=== PATIENT | female | born 2000 | race Caucasian/White ===

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

== ENCOUNTER 2018-02-13 04:32 | Emergency (ER) | payer SELFPAY ==
[~2018-02-13] VITALS: Ht 160 cm; Wt 81.6 kg
[~2018-02-13 04:32] MED LIST changes: +BENZ200C51 PO; -CITA20TA7; +CITA20TA9; +DOXY100C2 PO; +NAPR-1070 PO; +NAPR-1071 PO; -NAPR500T PO; -NAPR550T PO
--- OUTSIDE RECORDS SUMMARY | 2018-02-13 04:37 | XMS REPORT ---
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 Phone ANGELIA GOMES CP Unavailable Allergies, Adverse Reactions, Alerts Substance Reaction Event Type Hydrocodone-Acetaminophen hives Drug Allergy Problems Problem Type Condition Code Onset Dates Condition Status Problem Stress headaches F45.41 Active Problem Insomnia G47.00 Active Problem Depression F32.9 Active Assessment Insomnia G47.00 Active Problem Unspecified episodic mood disorder F39 Active Assessment Unspecified episodic mood disorder F39 Active Medications Medication Code System Code Instructions Start Date End Date Status Dosage Amitriptyline HCl [facility] [address]-97 25 MG Orally Once a day at 10 pm Jun 1 tablet Celexa [facility] [address]-21 20 MG Orally take 1/2 tab X7 days, then increase to 1 tab Once a day Jul 17, 2015 1 tablet Procedures Procedure Coding System Code Date MH Office Visit, Est Pt., Level 3 CPT-4 24504 Jul 17, 2015 Vital Signs Date/Time: Jul 17, 2015 Cardiac Monitoring Heart Rate 96 bpm Weight 217.0 lbs Height 64.7 in Ht Percentile 58.35 % BMI 36.44 Index Blood Pressure Diastolic 84 mmHg Blood Pressure Systolic 125 mmHg BMIPercentile 98.42 % Wt Percentile 98.59 % Results No Known Results Summary Purpose [employer] Submission
--- OUTSIDE RECORDS SUMMARY | 2018-02-13 04:37 | XMS REPORT ---
Author Author GEO MOFFETT [facility] [employer] Address Unknown Phone Unavailable Care Team Providers Care Gyn Physician Name Role Phone GEO MOFFETT Unavailable Allergies No Known Allergies Problems Problem Type Condition Code Onset Dates Condition Status Assessment Unspecified episodic mood disorder F39 Active Problem Unspecified episodic mood disorder F39 Active Medications No Known Medications Procedures Procedure Coding System Code Date Psychotherapy, patient &/family, 45 minutes, established patient CPT-4 31793 Jun 16, 2015 Results No Known Results Summary Purpose [employer] Submission
--- OUTSIDE RECORDS SUMMARY | 2018-02-13 04:38 | XMS REPORT ---
Author LAURIE Porter Organization [employer] Address Unknown Phone Unavailable Care Team Providers Care Sheet Pile Driver Operator Name Role Phone LAURIE REINA CP Unavailable Allergies, Adverse Reactions, Alerts Substance Reaction Event Type Hydrocodone-Acetaminophen hives Drug Allergy Problems Problem Type Condition Code Onset Dates Condition Status Problem Stress headaches F45.41 Active Problem Insomnia G47.00 Active Problem Depression F32.9 Active Problem Unspecified episodic mood disorder F39 Active Assessment Skin tags, multiple acquired L91.8 Active Medications No Known Medications Procedures Procedure Coding System Code Date Office Visit, Est Pt., Level 2 CPT-4 79034 Jul 20, 2016 REMOVE SKIN TAGS ADD-ON CPT-4 12160 Jul 20, 2016 Vital Signs Date/Time: Jul 20, 2016 Cardiac Monitoring Heart Rate 68 bpm Weight 224.3 lbs Height 65 in Wt Percentile 98.76 % BMI 37.32 Index Blood Pressure Diastolic 68 mmHg Blood Pressure Systolic 132 mmHg BMIPercentile 98.32 % Results No Known Results Summary Purpose eClinicalWorks Submission
--- OUTSIDE RECORDS SUMMARY | 2018-02-13 04:38 | XMS REPORT ---
Author Author GEO MOFFETT [facility] eClinicalWorks Address Unknown Phone Unavailable Care Team Providers Care Paving Rammer Name Role Phone GEO MOFFETT Unavailable Allergies [...] patient &/family, 45 minutes, established patient CPT-4 31119 Aug 19, 2015 Results No Known Results Summary Purpose eClinicalWorks Submission
--- OUTSIDE RECORDS SUMMARY | 2018-02-13 04:38 | XMS REPORT ---
Author Author GEO MOFFETT [facility] eClinicalWorks Address Unknown Phone Unavailable Care Team Providers Care Ict Teacher Name Role Phone GEO MOFFETT Unavailable Allergies [...] patient &/family, 45 minutes, established patient CPT-4 66293 Jul 09, 2015 Results No Known Results Summary Purpose eClinicalWorks Submission
--- OUTSIDE RECORDS SUMMARY | 2018-02-13 04:39 | XMS REPORT ---
Author LAURIE Porter Organization [employer] Address Unknown Phone Unavailable Care Team Providers Care Pile Driving Setter Name Role Phone LAURIE REINA CP Unavailable Allergies No Known Allergies Problems No Known Problems Medications No Known Medications Results No Known Results Summary Purpose eClinicalWorks Submission
--- OUTSIDE RECORDS SUMMARY | 2018-02-13 04:39 | XMS REPORT ---
Author KESHAWN Whitney [facility] eClinicalWorks Address Unknown Phone Unavailable Care Team Providers Care Security Services Manager Name Role Phone KESHAWN BURCH CP Unavailable Allergies, Adverse Reactions, Alerts Substance Reaction Event Type Hydrocodone-Acetaminophen Info Not Available Drug Allergy Problems Problem Type Condition ICD-9 Code Onset Dates Condition Status Assessment control counseling V25.09 Active Assessment Ovarian cyst, right 620.2 Active Medications Medication Code System Code Instructions Start Date End Date Status Dosage Tramadol HCl [facility] [address]-27 50 MG Orally every 6 hrs 1 tablet as needed Naproxen [facility] [address]-20 500 MG Orally Twice a day 1 tablet Ortho-Cyclen (28) [facility] [address]-58 0.25-35 MG-MCG Orally Once a day Apr 1 tablet Procedures Procedure Coding System Code Date Office Visit, Est Pt., Level 3 CPT-4 46127 May 12, 2015 Vital Signs Date/Time: May 12, 2015 Temperature 98.8 F Weight 219 lbs Height 64 in Wt Percentile 98.68 % Ht Percentile 47.69 % BMI 37.59 Index Cardiac Monitoring Heart Rate 86 bpm BMIPercentile 98.68 % Results No Known Results Summary Purpose eClinicalWorks Submission
--- OUTSIDE RECORDS SUMMARY | 2018-02-13 04:39 | XMS REPORT ---
Author Author GEO MOFFETT [facility] eClinicalWorks Address Unknown Phone Unavailable Care Team Providers Care Station Baggage Porter Name Role Phone GEO MOFFETT Unavailable Allergies No Known Allergies Problems Problem Type Condition ICD-9 Code Onset Dates Condition Status Assessment Unspecified episodic mood disorder 296.90 Active Medications No Known Medications Procedures Procedure Coding System Code Date Psychotherapy, patient &/family, 45 minutes, established patient CPT-4 26284 May 07, 2015 Results No Known Results Summary Purpose eClinicalWorks Submission
--- OUTSIDE RECORDS SUMMARY | 2018-02-13 04:39 | XMS REPORT ---
Author Author LAURIE REINA Organization [facility] Address [address] [place] [address] Care Team Providers Care Flame Gouger Name Role Phone LATOSHA LAURIE Unavailable PROBLEMS Type Condition ICD9-CM Code PSF90-FB Code Onset Dates Condition Status SNOMED Code Problem Primary insomnia F51.01 Active 7501231 Problem Morbid obesity due to excess calories E66.01 Active 183784490 Problem Insomnia G47.00 Active 062918103 Problem Unspecified episodic mood disorder F39 Active 27812745 Problem Stress headaches F45.41 Active 12724278 Problem Depression F32.9 Active 49295661 ALLERGIES No Information ENCOUNTERS Encounter Location Date Diagnosis [place] [id number] [place] [address]131[address] January, Weight gain R63.5 ; Localized edema R60.0 and Syncope, unspecified syncope type R55 [place] [id number] [place] [address] 00559- 5908 Dec, Primary insomnia F51.01 and Intermittent left lower quadrant abdominal pain R10.32 [place] [id number] [place] [address] 14234- 8722 Aug, Morbid obesity due to excess calories E66.01 and Tinea corporis B35.4 [place] [id number] [place] [address] 27617- 7013 Aug, [place] [address] [address] Apr, Acute pain of right wrist M25.531 [place] [id number] [place] [address] 11275- 9266 08 Jul, 2016 Skin tags, multiple acquired L91.8 [facility] [id number] [place] [address] -[address] Jun, Acute non-recurrent frontal sinusitis J01.10 [facility] [id number] [place] [address] 62688- 0907 Feb, [facility] [id number] [place] [address] 96576- 7756 Feb, Menorrhagia with irregular cycle N92.1 and control counseling Z30.9 [facility] [id number] [place] [address] [id number] Feb, Encounter for dental examination Z01.20 [facility] [id number] [place] [address] 76700- 7553 Feb, Unspecified episodic mood disorder F39 [facility] [id number] [place] [address] 84996- 2763 Dec, Unspecified episodic mood disorder F39 [facility] [address] [id number] Dec, Dental examination Z01.20 [facility] [id number] [place] [address] 91557 -4378 Nov, Bronchitis J40 [facility] [address] [id number] Sep, Dental examination Z01.20 [facility] [id number] [place] [address] 97779 -3261 Aug, Unspecified abdominal pain R10.9 and UTI (urinary tract infection) N39.0 [facility] [id number] [place] [address] 47888- 0435 Aug, Unspecified episodic mood disorder F39 [facility] [id number] [place] [address] 01751- 8872 Aug, Insomnia G47.00 ; Depression F32.9 ; Unspecified mood [ affective] disorder F39 ; Stress headaches F45.41 and Encounter for observation for other suspected diseases and conditions ruled out Z03.89 [facility] [address] [address] Jul, Unspecified episodic mood disorder F39 and Insomnia G47.00 [facility] [address] [address] Jun, Unspecified episodic mood disorder F39 [facility] [id number] [place] [address] 77594- 5050 Jun, Depression F32.9 [facility] [id number] [place] [address] 34095- 1465 Jun, Depression F32.9 ; Stress headaches F45.41 and Insomnia G47.00 [facility] [id number] [place] [address] 52702- 8762 Jun, Unspecified episodic mood disorder F39 [facility] [id number] [place] [address] 26710- 8826 May, Unspecified episodic mood disorder 296.90 [facility] [id number] [place] [address] 00898- 6623 May, [facility] [id number] [place] [address] 62884- 1612 Apr, Ovarian cyst, right 620.2 and control counseling V25.09 [facility] [id number] [place] [address] 60489- 2606 Apr, [facility] [id number] [place] [address] 10964- 9288 Apr, Unspecified episodic mood disorder 296.90 [facility] [id number] [place] [address] 82598- 0957 Apr, [facility] [id number] [place] [address] 94527- 3441 Apr, Unspecified episodic mood disorder 296.90 ; No condition on Taberg II V71.09 and No condition on axis III V71.09 [facility] [address] [facility] [id number] [address] Apr, Left knee pain 719.46 and Tuberculin skin test encounter V74.1 [facility] [address] [facility] [id number] [place] [address] Mar, [facility] [address] [place] [address] 0606 Dec, [facility] [address] [facility] [id number] [place] [address]- 4283 Dec, [facility] [address] [facility] [id number] [place] [address]- 7284 Nov, [facility] [address] [facility] [id number] [place] [address]- 3103 Nov, [facility] [address] [place] [address]- 7000 Nov, [facility] [id number] [place] [address]- 9233 Nov, [facility] [address] [place] [address]- 1804 Nov, [facility] [address] [place] [address]- 3103 Nov, [facility] [address] [place] [address]- 7950 Oct, [facility] [address] [facility] [id number], [place] [address] Oct, [facility] [address] [facility] [id number], [place] [address]447 Oct, [facility] [address] [facility] [id number], [place] [address] Oct, [facility] [id number] [address] Jul, [facility] [place] [facility] [address] [id number] [place] [address]- 1379 Jul, [facility] [place] [facility] [address] [id number] [place] [address]- 8958 Jun, [facility] [place] [facility] [address] [id number] [place] [address]- 3678 Jun, [facility] [place] [facility] [address] [id number] [place] [address]- 8620 Jun, [facility] [place] [facility] [address] [id number] [place] [address]- 3631 Jun, [facility] [place] [facility] [address] [id number] [place] [address]- 0030 24 May, 2014 [facility] [place] [facility] [address] [id number] [place] [address]- 1735 24 May, 2014 [facility] [place] [facility] [address] [id number] [place] [address]- 0223 13 May, 2014 [facility] [place] [facility] [address] [id number] [place] [address]- 5599 12 May, 2014 [facility] [place] [facility] [address] [id number] [place] [address]- 2183 12 May, 2014 [facility] [place] [facility] [address] [id number] [place] [address]- 5664 10 May, 2014 [facility] [place] [facility] [address] [id number] [place] [address]- 5323 10 May, 2014 [facility] [place] [facility] [address] [id number] [place] [address]- 1074 18 Dec, 2013 [facility] [place] [facility] [address] [id number] [place] [address]- 5786 18 Dec, 2013 [facility] [place] [facility] [address] [id number] [place] [address]- 8848 16 Dec, 2013 [facility] [place] [facility] [address] [id number], [place] [address]- 2546 Dec, [facility] [address] [address]- 2546 Dec, [facility] [address] [address]- 2546 Dec, [facility] [address], [place] [address]- [address] January, [facility] [address], [place] [address]- 2546 Sep, [facility] [address], [place] [address] 2546 May, [facility] [address] [address] 2546 Oct, [facility] [address], [place] [address] 2546 Apr, IMMUNIZATIONS No Known Immunizations SOCIAL HISTORY Never Assessed REASON FOR VISIT triage - CBowmanRN PLAN OF CARE VITAL SIGNS MEDICATIONS Unknown Medications RESULTS No Results PROCEDURES No Known procedures INSTRUCTIONS MEDICATIONS ADMINISTERED No Known Medications MEDICAL (GENERAL) HISTORY Type Description Date Medical History Seizures due to stress. Last one was November 2014 Surgical History tonsillectomy and adenoidectomy
--- OUTSIDE RECORDS SUMMARY | 2018-02-13 04:39 | XMS REPORT ---
Author Author GEO MOFFETT [facility] eClinicalWorks Address Unknown Phone Unavailable Care Team Providers Care Hardwood Floor Refinisher Name Role Phone GEO MOFFETT Unavailable Allergies [...] patient &/family, 45 minutes, established patient CPT-4 55642 December 24, 2015 Results No Known Results Summary Purpose eClinicalWorks Submission
--- OUTSIDE RECORDS SUMMARY | 2018-02-13 04:40 | XMS REPORT ---
Author NELLY Arredondo [facility] eClinicalWorks Address Unknown Phone Unavailable Care Team Providers Care Walking Dragline Operator Name Role Phone NELLY FELIPE CP Unavailable Allergies, Adverse Reactions, Alerts Substance Reaction Event Type Hydrocodone-Acetaminophen hives Drug Allergy Problems Problem Type Condition Code Onset Dates Condition Status Problem Stress headaches F45.41 Active Problem Insomnia G47.00 Active Problem Depression F32.9 Active Assessment UTI (urinary tract infection) N39.0 Active Problem Unspecified episodic mood disorder F39 Active Assessment Unspecified abdominal pain R10.9 Active Medications Medication Code System Code Instructions Start Date End Date Status Dosage Seroquel [facility] [address]-24 50 MG Orally Once a day Aug 19, 2015 1 tablet at bedtime Celexa [facility] [address]-51 20 MG Orally Once a day Jul 17, 2015 1 tablet Bactrim DS [facility] [address]-19 800-160 MG Orally 2 times a day Aug 19, 2015 Aug 26, 2015 1 tablet Amitriptyline HCl [facility] [address]-03 25 MG Orally Once a day at 10 pm Jun 1 tablet Procedures Procedure Coding System Code Date URINALYSIS, AUTO, W/O SCOPE CPT-4 25717 Aug 19, 2015 CHYLMD TRACH, DNA, AMP PROBE CPT-4 22674 Aug 19, 2015 URINE TEST CPT-4 84144 Aug 19, 2015 URINE CULTURE/COLONY COUNT CPT-4 31603 Aug 19, 2015 N.GONORRHOEAE, DNA, AMP PROB CPT-4 85712 Aug 19, 2015 Office Visit, Est Pt., Level 3 CPT-4 40802 Aug 19, 2015 Vital Signs Date/Time: Aug 19, 2015 Cardiac Monitoring Heart Rate 88 bpm Weight 218 lbs Height 64.7 in Ht Percentile 58.23 % BMI 36.61 Index Blood Pressure Diastolic 68 mmHg Blood Pressure Systolic 108 mmHg BMIPercentile 98.43 % Wt Percentile 98.61 % Results Name Result Date Reference Range Unit Abnormality Flag TEST, URINE (IN HOUSE) ----RESULTS negative [id number] ----Lot # [id number] ----Control + [id number] ----Exp date 20150819 UA LONG DIP (IN HOUSE) ----MARVEL negative 20150819 ----GLU negative 20150819 ----SG <=1.005 20150819 ----KET negative 20150819 ----pH 5.5 20150819 ----Protein negative 20150819 ----BLO negative 20150819 ----ALDAIR 2+ 20150819 ----Color clear 20150819 ----Lot # [id number] ----Odor normal 20150819 ----Exp date 20150819 ----URO 0.2 E.U./dL 20150819 ----NIT negative 20150819 ----Clarity yellow 20150819 ----Lot # [id number] ----Exp date 20150819 Summary Purpose eClinicalWorks Submission
--- OUTSIDE RECORDS SUMMARY | 2018-02-13 04:40 | XMS REPORT ---
Author LAKSHMI Mitchell Organization eClinicalWorks Address Unknown Phone Unavailable Care Team Providers Care Vp Product Marketing Name Role Phone LAKSHMI BYRNE CP Unavailable Allergies, Adverse Reactions, Alerts Substance Reaction Event Type Hydrocodone-Acetaminophen hives Drug Allergy Problems Problem Type Condition Code Onset Dates Condition Status Problem Stress headaches F45.41 Active Problem Insomnia G47.00 Active Problem Depression F32.9 Active Problem Unspecified episodic mood disorder F39 Active Assessment Acute non-recurrent frontal sinusitis J01.10 Active Medications Medication Code System Code Instructions Start Date End Date Status Dosage ProAir HFA [facility] [address]-09 108 (90 Base) MCG/ACT Inhalation every 4 hrs prn cough or wheeze December 09, 2015 2 puffs as needed Augmentin [facility] [address]-52 875-125 MG Orally every 12 hrs Jul 02, 2016 Jul 12, 2016 1 tablet Procedures Procedure Coding System Code Date THER/PROPH/DIAG INJ, SC/IM CPT-4 48787 Jul 02, 2016 Office Visit, Est Pt., Level 3 CPT-4 45384 Jul 02, 2016 SOLUMEDROL (UP TO 125 MG) CPT-4 J2930 Jul 02, 2016 Vital Signs Date/Time: Jul 02, 2016 Cardiac Monitoring Heart Rate 90 bpm Weight 225 lbs Height 65 in Wt Percentile 98.78 % BMI 37.44 Index Blood Pressure Diastolic 68 mmHg Blood Pressure Systolic 120 mmHg BMIPercentile 98.35 % Results No Known Results Summary Purpose eClinicalWorks Submission
--- OUTSIDE RECORDS SUMMARY | 2018-02-13 04:40 | XMS REPORT ---
Author Author CHICHI JOYA Organization eClinicalWorks Address Unknown Phone Unavailable Care Team Providers Care Hydrology Teacher Name Role Phone CHICHI JOYA CP Unavailable Allergies, Adverse Reactions, Alerts Substance Reaction Event Type Hydrocodone-Acetaminophen hives Drug Allergy Problems Problem Type Condition Code Onset Dates Condition Status Assessment Stress headaches F45.41 Active Assessment Encounter for observation for other suspected diseases and conditions ruled out Z03.89 Active Problem Stress headaches F45.41 Active Problem Insomnia G47.00 Active Problem Depression F32.9 Active Assessment Depression F32.9 Active Assessment Unspecified mood [affective] disorder F39 Active Problem Unspecified episodic mood disorder F39 Active Assessment Insomnia G47.00 Active Medications Medication Code System Code Instructions Start Date End Date Status Dosage Seroquel [facility] [address]-23 50 MG Orally Once a day Aug 19, 2015 1 tablet at bedtime Amitriptyline HCl [facility] [address]-05 25 MG Orally Once a day at 10 pm Jun 1 tablet Celexa [facility] [address]-04 20 MG Orally Once a day Jul 17, 2015 1 tablet Procedures Procedure Coding System Code Date MH Office Visit, Est Pt., Level 4 CPT-4 64046 Aug 19, 2015 Vital Signs Date/Time: Aug 19, 2015 Cardiac Monitoring Heart Rate 88 bpm Weight 218 lbs Height 64.7 in Ht Percentile 58.23 % BMI 36.61 Index Blood Pressure Diastolic 68 mmHg Blood Pressure Systolic 108 mmHg BMIPercentile 98.43 % Wt Percentile 98.61 % Results No Known Results Summary Purpose eClinicalWorks Submission
--- OUTSIDE RECORDS SUMMARY | 2018-02-13 04:40 | XMS REPORT ---
Author DELIA Lopez [facility] eClinicalWorks Address Unknown Phone Unavailable Care Team Providers Care Social Work Specialist Name Role Phone DELIA JO CP Unavailable Allergies, Adverse Reactions, Alerts Substance Reaction Event Type Hydrocodone-Acetaminophen hives Drug Allergy Problems Problem Type Condition Code Onset Dates Condition Status Problem Stress headaches F45.41 Active Problem Insomnia G47.00 Active Problem Depression F32.9 Active Assessment Stress headaches F45.41 Active Assessment Insomnia G47.00 Active Problem Unspecified episodic mood disorder F39 Active Assessment Depression F32.9 Active Medications Medication Code System Code Instructions Start Date End Date Status Dosage Amitriptyline HCl [facility] [address]-25 25 MG Orally Once a day at 10 pm Jun 1 tablet Procedures Procedure Coding System Code Date Office Visit, Est Pt., Level 4 CPT-4 69804 Jul 08, 2015 Vital Signs Date/Time: Jul 08, 2015 Temperature 97.8 F BMIPercentile 98.41 % Weight 212 lbs Height 64 in BMI 36.39 Index Blood Pressure Diastolic 78 mmHg Blood Pressure Systolic 112 mmHg Cardiac Monitoring Heart Rate 90 bpm Wt Percentile 98.39 % Ht Percentile 47.44 % Results No Known Results Summary Purpose eClinicalWorks Submission
--- OUTSIDE RECORDS SUMMARY | 2018-02-13 04:40 | XMS REPORT ---
Author Author GLADYS KILLIAN [facility] eClinicalWorks Address Unknown Phone Unavailable Care Team Providers Care Firmware Manager Name Role Phone GLADYS KILLIAN CP Unavailable Allergies No Known Allergies Problems Problem Type Condition Code Onset Dates Condition Status Problem Stress headaches F45.41 Active Problem Insomnia G47.00 Active Problem Depression F32.9 Active Problem Unspecified episodic mood disorder F39 Active Assessment Dental examination Z01.20 Active Medications No Known Medications Procedures Procedure Coding System Code Date Dental no charge CPT-4 D0099 December 16, 2015 Results No Known Results Summary Purpose eClinicalWorks Submission
--- OUTSIDE RECORDS SUMMARY | 2018-02-13 04:40 | XMS REPORT ---
Author Author DELIA JO Organization [employer] Address Unknown Phone Unavailable Care Team Providers Care Proof Reader Name Role Phone DELIA JO Unavailable Allergies No Known Allergies Problems Problem Type Condition Code Onset Dates Condition Status Problem Stress headaches F45.41 Active Problem Insomnia G47.00 Active Problem Depression F32.9 Active Problem Unspecified episodic mood disorder F39 Active Assessment Depression F32.9 Active Medications No Known Medications Procedures Procedure Coding System Code Date ASSAY OF INSULIN CPT-4 02490 Jul 09, 2015 COMPLETE CBC W/AUTO DIFF WBC CPT-4 05382 Jul 09, 2015 ASSAY THYROID STIM HORMONE CPT-4 92519 Jul 09, 2015 COMPREHEN METABOLIC PANEL CPT-4 40245 Jul 09, 2015 LIPID PANEL CPT-4 70776 Jul 09, 2015 VENIPUNCT, ROUTINE* CPT-4 37021 Jul 09, 2015 Results Name Result Date Reference Range Unit Abnormality Flag ROUTINE VENIPUNCTURE Summary Purpose eClinicalWorks Submission
--- OUTSIDE RECORDS SUMMARY | 2018-02-13 04:41 | XMS REPORT ---
Author KESHAWN Whitney [facility] eClinicalWorks Address Unknown Phone Unavailable Care Team Providers Care Adzing And Boring Machine Operator Name Role Phone KESHAWN BURCH CP Unavailable Allergies No Known Allergies Problems No Known Problems Medications No Known Medications Results No Known Results Summary Purpose eClinicalWorks Submission
--- OUTSIDE RECORDS SUMMARY | 2018-02-13 04:41 | XMS REPORT ---
Author Author AIMEE ADDISON Organization [facility] Address [address] [place] [address] Care Team Providers Care Interactive Digital Media Specialist Name Role Phone AIMEE ADDISON Unavailable PROBLEMS Type Condition ICD9-CM Code ZBB09-XG Code Onset Dates Condition Status SNOMED Code Problem Primary insomnia F51.01 Active 4586905 Problem Morbid obesity due to excess calories E66.01 Active 566035508 Problem Insomnia G47.00 Active 339710461 Problem Unspecified episodic mood disorder F39 Active 24900992 Problem Stress headaches F45.41 Active 89862210 Problem Depression F32.9 Active 11343441 ALLERGIES Substance Reaction Event Type Date Status Hydrocodone-Acetaminophen hives Drug Allergy Apr, Active ENCOUNTERS Encounter Location Date Diagnosis [facility] [address] [address] Dec, Primary insomnia F51.01 and Intermittent left lower quadrant abdominal pain R10.32 [facility] [address] [place] [address] Aug, Morbid obesity due to excess calories E66.01 and Tinea corporis B35.4 [place] [id number] [place] [address] Aug, [facility] [address] [place] [address] Apr, Acute pain of right wrist M25.531 [facility] [address] [place] [address] 01857- [address] Jul, Skin tags, multiple acquired L91.8 [facility] [address] [place] [id number] [place] [address] Jun, Acute non-recurrent frontal sinusitis J01.10 [facility] [address] [place] [address] [id number]- [address] 28 Feb, 2016 [facility] [address] [address] Feb, Menorrhagia with irregular cycle N92.1 and control counseling Z30.9 [facility] [address] [id number] 15 Feb, 2016 Encounter for dental examination Z01.20 [facility] [address] [id number] [place] [address]15- [address] Feb, Unspecified episodic mood disorder F39 [place] [address] [address] Dec, Unspecified episodic mood disorder F39 [facility] [address] [id number] Dec, Dental examination Z01.20 [facility] [id number] [place] [address] -[address]228 Nov, Bronchitis J40 [facility] [address] [id number] Sep, Dental examination Z01.20 [facility] [id number] [place] [address] Aug, Unspecified abdominal pain R10.9 and UTI (urinary tract infection) N39.0 [place] [address] [place] [address] 26884- 4[address] Aug, Unspecified episodic mood disorder F39 [facility] [address] [id number] [place] [address] 72683- 7[address] Aug, Insomnia G47.00 ; Depression F32.9 ; Unspecified mood [ affective] disorder F39 ; Stress headaches F45.41 and Encounter for observation for other suspected diseases and conditions ruled out Z03.89 [place] [address] [address] Jul, Unspecified episodic mood disorder F39 and Insomnia G47.00 [facility] [id number] [place] [address] 81287- 0593 Jun, Unspecified episodic mood disorder F39 [facility] [id number] [place] [address] 26146- 6776 Jun, Depression F32.9 [facility] [id number] [place] [address] 63414- 3[address] Jun, Depression F32.9 ; Stress headaches F45.41 and Insomnia G47.00 [facility] [address] [place] [id number] [place] [address] 07116- 0647 Jun, Unspecified episodic mood disorder F39 [facility] [id number] [place] [address] 26067- 1626 May, Unspecified episodic mood disorder 296.90 [facility] [id number] [place] [address] 77754- 2034 May, [facility] [id number] [place] [address] 02156- 9787 Apr, Ovarian cyst, right 620.2 and control counseling V25.09 [facility] [address] [place] [id number] [place] [address] 56737- 8477 Apr, [facility] [id number] [place] [address] 64046- 9860 Apr, Unspecified episodic mood disorder 296.90 [facility] [id number] [place] [address] 31065- 4543 Apr, [facility] [address] [address] [id number] [place] [address] 56140- 8267 Apr, Unspecified episodic mood disorder 296.90 ; No condition on [place] II V71.09 and No condition on axis III V71.09 [facility] [id number] [place] [address] 9[address]69- [address] 04 Aug, 2015 Left knee pain 719.46 and Tuberculin skin test encounter V74.1 [facility] [address] [facility] [id number] [place] [address] 30 Mar, 2015 [facility] [address] [facility] [id number] [address] Dec, [facility] [address] [facility] [id number] [place] [address] Dec, [facility] [address] [id number], [place] [address] Nov, [facility] [address] [facility] [id number] [place] [address] Nov, [facility] [address] [facility] [id number][place] [address] Nov, [facility] [address] [address] Nov, [facility] [address] [facility] [id number], [place] [address] Nov, [facility] [address] [address] Nov, [facility] [address] [id number] [address] Oct, [facility] [address] [facility] [id number][place] [address] Oct, [facility] [address] [facility] [id number], [place] [address] Oct, [facility] [address] [facility] [id number][place] [address] Oct, [facility] [address] [facility] [id number] [address] Jul, [facility] [address] [address] Jul, [facility] [place] [facility] [address] [id number] [place] [address]- [address]39 24 Jun, 2014 [facility] [place] [facility] [address] [id number] [place] [address]- 0086 24 Jun, 2014 [facility] [place] [facility] [address] [id number] [place] [address]- 7561 10 Jun, 2014 [facility] [place] [facility] [address] [id number] [place] [address]- 2779 10 Jun, 2014 [facility] [place] [facility] [address] [id number] [place] [address]- 2608 24 May, 2014 [facility] [place] [facility] [address] [id number] [place] [address]- 9173 24 May, 2014 [facility] [place] [facility] [address] [id number] [place] [address]- 7930 13 May, 2014 [facility] [place] [facility] [address] [id number] [place] [address]- [address]887 12 May, 2014 [facility] [place] [facility] [address] [id number] [place] [address]- 7936 12 May, 2014 [facility] [place] [facility] [address] [id number] [place] [address]- 3575 10 May, 2014 [facility] [place] [facility] [address] [id number] [place] [address]- 1054 10 May, 2014 [facility] [place] [facility] [address] [id number] [place] [address]- 5447 18 Dec, 2013 [facility] [place] [facility] [address] [id number] [place] [address]- 6[address] 18 Dec, 2013 [facility] [place] [facility] [address] [id number] [place] [address]- 5660 16 Dec, 2013 [facility] [place] [facility] [address] [id number] [place] [address]- 62[address] 16 Dec, 2013 [facility] [place] [facility] [address] [id number] [place] [address]- [address] 14 Dec, 2013 [facility] [address] [facility] [id number] [place] [address]- [address] 14 Dec, 2013 [facility] [address] [facility] [id number], [place] [address]- [address] January, [facility] [address] [facility] [id number], [place] [address]- [address] Sep, [facility] [address] [facility] [id number][place] [address]- 25[address] May, [facility] [address] [facility] [id number], [place] [address]- [address] Oct, [facility] [address] [facility] [id number], [place] [address]- [address] Apr, IMMUNIZATIONS No Known Immunizations SOCIAL HISTORY Never Assessed REASON FOR VISIT wrist pain - Right wrist pain states she has a ganglion cyst that has been there for about 4 years that was to be removed but she chose not to have it removed. States that it is now causing numbness into her fingers. - Ny NIELSON PLAN OF CARE Activity Details Follow Up prn Reason: VITAL SIGNS Height 65 in 2017-05-10 Weight 254.0 lbs 2017-05-10 Temperature 98.2 degrees Fahrenheit 2017-05-10 Heart Rate 76 bpm 2017-05-10 Respiratory Rate 18 2017-05-10 BMI 42.26 kg/m2 2017-05-10 Blood pressure systolic 129 mmHg 2017-05-10 Blood pressure diastolic 83 mmHg 2017-05-10 MEDICATIONS Medication Instructions Dosage Frequency Start Date End Date Duration Status Ibuprofen 800 MG Orally Three times a day 1 tablet with food or milk 8h Apr, May, 14 days Active Tylenol 325 MG Orally every 6 hrs 2 tablets as needed 6h Active RESULTS No Results PROCEDURES No Known procedures INSTRUCTIONS MEDICATIONS ADMINISTERED No Known Medications MEDICAL (GENERAL) HISTORY Type Description Date Medical History Seizures due to stress. Last one was November 2014 Surgical History tonsillectomy and adenoidectomy
--- OUTSIDE RECORDS SUMMARY | 2018-02-13 04:41 | XMS REPORT ---
Author Author ANGELIA GOMES Organization [employer] Address Unknown Phone Unavailable Care Team Providers Care Hide Measuring Machine Operator Name Role Phone ANGELIA GOMES CP Unavailable Allergies, Adverse Reactions, Alerts Substance Reaction Event Type Hydrocodone-Acetaminophen Info Not Available Drug Allergy Problems Problem Type Condition ICD-9 Code Onset Dates Condition Status Assessment Unspecified episodic mood disorder 296.90 Active Medications Medication Code System Code Instructions Start Date End Date Status Dosage Prozac [facility] [address]-78 20 MG Orally Once a day May 16, 2015 1 capsule in the morning Tramadol HCl [facility] [address]-96 50 MG Orally every 6 hrs 1 tablet as needed Ortho-Cyclen (28) [facility] [address]-66 0.25-35 MG-MCG Orally Once a day Apr 1 tablet Naproxen [facility] [address]-32 500 MG Orally Twice a day 1 tablet Procedures Procedure Coding System Code Date Office Visit, Est Pt., Level 5 CPT-4 98242 May 16, 2015 Vital Signs Date/Time: May 16, 2015 Temperature 98.6 F BMIPercentile 98.51 % Weight 218.5 lbs Height 64.7 in BMI 36.69 Index Blood Pressure Diastolic 80 mmHg Blood Pressure Systolic 122 mmHg Cardiac Monitoring Heart Rate 104 bpm Wt Percentile 98.66 % Ht Percentile 58.59 % Results No Known Results Summary Purpose [employer] Submission
--- OUTSIDE RECORDS SUMMARY | 2018-02-13 04:41 | XMS REPORT ---
Author Author MAURILIO PRETTY Organization [employer] Address Unknown Phone Unavailable Care Team Providers Care Hall Monitor Name Role Phone MAURILIO PRETTY CP Unavailable Allergies, Adverse Reactions, Alerts Substance Reaction Event Type Hydrocodone-Acetaminophen hives Drug Allergy Problems Problem Type Condition Code Onset Dates Condition Status Problem Stress headaches F45.41 Active Problem Insomnia G47.00 Active Problem Depression F32.9 Active Problem Unspecified episodic mood disorder F39 Active Assessment Dental examination Z01.20 Active Medications No Known Medications Procedures Procedure Coding System Code Date APPLICATION DESENZT MEDICAMENT CPT-4 D9910 Sep 30, 2015 INTRAORL-PERIAPICAL 1 FILM 33624 CPT-4 D0220 Sep 30, 2015 LTD ORAL EVALUATION - PROBLEM FOCUS CPT-4 D0140 Sep 30, 2015 BITEWING - SINGLE FILM CPT-4 D0270 Sep 30, 2015 Vital Signs Date/Time: Sep 30, 2015 Blood Pressure Diastolic 84 mmHg Blood Pressure Systolic 123 mmHg Results No Known Results Summary Purpose [employer] Submission
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
[2018-02-13] MEDS ORDERED: NS IV 1000 ML 1,000 ML IV ONE (04:44)
[2018-02-13 04:58] LABS: BASOPHILS % (AUTO) 0 % (0-10); EOSINOPHILS % (AUTO) 0 % (0-10); HEMATOCRIT 36 % (35-52); HEMOGLOBIN 13.6 G/DL (11.5-16.0); LYMPHOCYTES # (AUTO) 2.2 X 10^3 (1.0-4.0); LYMPHOCYTES % (AUTO) 15 % (12-44); MEAN CORPUSCULAR HEMOGLOBIN 29 PG (25-34); MEAN CORPUSCULAR HGB CONC 38 G/DL (32-36); MEAN CORPUSCULAR VOLUME 77 FL (80-99); MEAN PLATELET VOLUME 11.3 FL (7.4-10.4); MONOCYTES # (AUTO) 1.5 X 10^3 (0.0-1.0); MONOCYTES % (AUTO) 10 % (0-12); NEUTROPHILS # (AUTO) 10.8 X 10^3 (1.8-7.8); NEUTROPHILS % (AUTO) 74 % (42-75); PLATELET COUNT 430 10^3/uL (130-400); RED BLOOD COUNT 4.73 10^6/uL (4.35-5.85); RED CELL DISTRIBUTION WIDTH 12.5 % (10.0-14.5); WHITE BLOOD COUNT 14.5 10^3/uL (4.3-11.0)
[2018-02-13] MEDS ORDERED: ANTACID SUSP 30 ML UDC (MYLANTA) ONE (04:58)
[2018-02-13] MEDS ORDERED: ANTACID SUSP 30 ML UDC (MYLANTA) PO ONE (05:00)
[2018-02-13] MEDS ORDERED: LIDOCAINE 2% VISCOUS 15 ML UDC PO ONE (05:00)
--- NOTE | 2018-02-13 05:02 | ED General ---
General Chief Complaint: Abdominal/GI Problems Stated Complaint: AB PAIN Nursing Triage Note: pt brought in by ems with complaint of abd pain and soa. states she took meth x3 days. Source of Information: Patient Exam Limitations: No Limitations History of Present Illness Date Seen by Provider: Feb 13, 2018 Time Seen by Provider: 04:33 Initial Comments Here with report of abdominal pain and shortness of breath. States this is been going on for 3 days since she injected methamphetamine. Reports that she' s not been able to eat or drink today because she's been vomiting. Denies taking any other substances or drinking alcohol. Does not report vomiting or blood in her stool. She was clean from methamphetamine for 9 months but 2 weeks ago restarted. She reports that it was her mother who made her come air tonight but she admits that she was not feeling well. Patient arrives by EMS. Timing/Duration: 2-3 Days Severity: Moderate Associated Systoms: No Chest Pain, No Cough, No Fever/Chills; Nausea/Vomiting, Shortness of Air; No Weakness Allergies and Home Medications Allergies Coded Allergies: codeine (Verified Allergy, Mild, 12/23/13) guaifenesin (Verified Allergy, Mild, 12/23/13) hydrocodone (Unverified Allergy, Unknown, 05/15/14) Patient Home Medication List Home Medication List Reviewed: Yes Review of Systems Constitutional: see HPI; No chills, No fever EENTM: no symptoms reported Respiratory: short of breath; No wheezing Cardiovascular: no symptoms reported; No chest pain, No edema Gastrointestinal: abdominal pain (epigastric); No diarrhea; nausea, vomiting Genitourinary: no symptoms reported Musculoskeletal: no symptoms reported All Other Systems Reviewed Negative Unless Noted: Yes Past Bfcwlqj-Uglqut-Ubfqct Hx Past Med/Social Hx: Reviewed Nursing Past Med/Soc Hx Patient Social History Alcohol Use: Denies Use Recreational Drug Use: Yes Drug of Choice: meth Smoking Status: Never a Smoker 2nd Hand Smoke Exposure: Yes Recent Foreign Travel: No Contact w/Someone Who Travel: No Recent Infectious Disease Expo: No Recent Hopitalizations: No Ebola Symptoms: Denies Symptoms Listed Immunizations Up To Date Tetanus Booster (TDap): Less than 5yrs PED Vaccines UTD: Yes Seasonal Allergies Seasonal Allergies: No Past Medical History Surgeries: Yes Adenoidectomy, Tonsillectomy Respiratory: Yes Asthma Cardiac: No Neurological: Yes ((stress induced seizures) PER PT) Headaches /Migraines, Seizure Disorder Reproductive Disorders: No Female Reproductive Disorders: Menstrual Problems, Ovarian Cyst Sexually Transmitted Disease: No Gastrointestinal: No Musculoskeletal: No Endocrine: No Cancer: No Psychosocial: Yes Sleep Difficulties, Anxiety, Depression Integumentary: No Blood Disorders: No Family Medical History Reviewed Nursing Family Hx No Pertinent Family Hx, Heart Disease, Cancer, Stroke Physical Exam Vital Signs Vital Signs - First Documented 02/13/18 04:33 Temp 97.4 Pulse 121 Resp 25 B/P (MAP) 135/83 Pulse Ox 100 O2 Delivery Room Air Capillary Refill : General Appearance: No Apparent Distress, WD/WN HEENT: PERRL/EOMI, Pharynx Normal Neck: Non Tender, Supple Respiratory: Lungs Clear, Normal Breath Sounds, No Accessory Muscle Use, No Respiratory Distress Cardiovascular: No Edema, No Murmur, Tachycardia Gastrointestinal: Soft; No Guarding, No Rebound; Tenderness Back: Normal Inspection, No CVA Tenderness, No Vertebral Tenderness Extremity: Normal Range of Motion, Non Tender Neurologic/Psychiatric: Alert, Oriented x3 Skin: Normal Color, Warm/Dry Progress/Results/Core Measures Suspected Sepsis SIRS Temperature:97.4 Pulse: Respiratory Rate: Laboratory Tests 02/13/18 04:44: White Blood Count 14.5H Blood Pressure / Mean: Laboratory Tests 02/13/18 04:44: Creatinine 0.84, Platelet Count 430H, Total Bilirubin 1.7H Results/Orders Lab Results Laboratory Tests Test 02/13/18 04:44 Range/Units White Blood Count 14.5 H 4.3-11.0 10^3/uL Red Blood Count 4.73 4.35-5.85 10^6/uL Hemoglobin 13.6 11.5-16.0 G/DL Hematocrit 36 35-52 % Mean Corpuscular Volume 77 L 80-99 FL Mean Corpuscular Hemoglobin 29 25-34 PG Mean Corpuscular Hemoglobin Concent 38 H 32-36 G/DL Red Cell Distribution Width 12.5 10.0-14.5 % Platelet Count 430 H 130-400 10^3/uL Mean Platelet Volume 11.3 H 7.4-10.4 FL Neutrophils (%) (Auto) 74 42-75 % Lymphocytes (%) (Auto) 15 12-44 % Monocytes (%) (Auto) 10 0-12 % Eosinophils (%) (Auto) 0 0-10 % Basophils (%) (Auto) 0 0-10 % Neutrophils # (Auto) 10.8 H 1.8-7.8 X 10^3 Lymphocytes # (Auto) 2.2 1.0-4.0 X 10^3 Monocytes # (Auto) 1.5 H 0.0-1.0 X 10^3 Eosinophils # (Auto) 0.0 0.0-0.3 10^3/uL Basophils # (Auto) 0.0 0.0-0.1 10^3/uL Urine Color YELLOW Urine Clarity CLEAR Urine pH 6 5-9 Urine Specific [place] 1.020 1.016-1.022 Urine Protein 2+ H NEGATIVE Urine Glucose (UA) NEGATIVE NEGATIVE Urine Ketones 4+ H NEGATIVE Urine Nitrite NEGATIVE NEGATIVE Urine Bilirubin NEGATIVE NEGATIVE Urine Urobilinogen 4 H NORMAL MG/DL Urine Leukocyte Esterase 2+ H NEGATIVE Urine RBC (Auto) NEGATIVE NEGATIVE Urine RBC NONE /HPF Urine WBC 0-2 /HPF Urine Squamous Epithelial Cells 5-10 /HPF Urine Crystals NONE /LPF Urine Bacteria FEW H /HPF Urine Casts NONE /LPF Urine Mucus LARGE H /LPF Urine Culture Indicated YES Sodium Level 141 135-145 MMOL/L Potassium Level 3.4 L 3.6-5.0 MMOL/L Chloride Level 107 98-107 MMOL/L Carbon Dioxide Level 15 L 21-32 MMOL/L Anion Gap 19 H 5-14 MMOL/L Blood Urea Nitrogen 14 7-18 MG/DL Creatinine 0.84 0.60-1.30 MG/DL Estimat Glomerular Filtration Rate > 60 BUN/Creatinine Ratio 17 Glucose Level 115 H 70-105 MG/DL Calcium Level 10.2 H 8.5-10.1 MG/DL Total Bilirubin 1.7 H 0.1-1.0 MG/DL Aspartate Amino Transf (AST/SGOT) 33 5-34 U/L Alanine Aminotransferase (ALT/SGPT) 34 0-55 U/L Alkaline Phosphatase 29 L 40-136 U/L Total Protein 8.8 H 6.4-8.2 GM/DL Albumin 4.8 H 3.2-4.5 GM/DL Salicylates Level < 5.0 L 5.0-20.0 MG/DL Urine Opiates Screen NEGATIVE NEGATIVE Urine Oxycodone Screen NEGATIVE NEGATIVE Urine Methadone Screen NEGATIVE NEGATIVE Urine Propoxyphene Screen NEGATIVE NEGATIVE Acetaminophen Level < 10 L 10-30 UG/ML Urine Barbiturates Screen NEGATIVE NEGATIVE Ur Tricyclic Antidepressants Screen NEGATIVE NEGATIVE Urine Phencyclidine Screen NEGATIVE NEGATIVE Urine Amphetamines Screen POSITIVE H NEGATIVE Urine Methamphetamines Screen POSITIVE H NEGATIVE Urine Benzodiazepines Screen NEGATIVE NEGATIVE Urine Cocaine Screen NEGATIVE NEGATIVE Urine Cannabinoids Screen NEGATIVE NEGATIVE Serum Alcohol < 10 <10 MG/DL My Orders Orders - CESAR SHEARER MD Saline Lock/Iv-Start (02/13/18 04:44) Ns Iv 1000 Ml (Sodium Chloride 0.9%) (02/13/18 04:44) Acetaminophen (02/13/18 04:44) Alcohol (02/13/18 04:44) Cbc With Automated Diff (02/13/18 04:44) Comprehensive Metabolic Panel (02/13/18 04:44) Drug Screen Stat (Urine) (02/13/18 04:44) Salicylate (02/13/18 04:44) Ua Culture If Indicated (02/13/18 04:44) Lidocaine 2% Viscous 15 Ml (Xylocaine Vi (02/13/18 05:00) Antacid Suspension (Mylanta Suspension (02/13/18 05:00) Antacid Suspension (Mylanta Suspension (02/13/18 04:58) Saline Lock/Iv-Start (02/13/18 05:27) Lactated Ringers (Lr 1000 Ml Iv Solution (02/13/18 05:27) Ketorolac Injection (Toradol Injection) (02/13/18 05:27) Urine Culture (02/13/18 04:44) Medications Given in ED Current Medications Medications Dose Ordered Sig/Dashawn Route Start Time Stop Time Status Last Admin Dose Admin Al Hydrox/Mg Hydrox/Simethicone 30 ml ONCE ONCE PO 02/13/18 05:00 02/13/18 05:01 DC 02/13/18 04:59 30 ML Lactated Ringer's 1,000 ml @ 0 mls/hr Q0M ONCE IV 02/13/18 05:27 02/13/18 05:28 DC 02/13/18 05:36 1,000 MLS/HR Lidocaine HCl 15 ml ONCE ONCE PO 02/13/18 05:00 02/13/18 05:01 DC 02/13/18 05:00 15 ML Sodium Chloride 1,000 ml @ 0 mls/hr Q0M ONCE IV 02/13/18 04:44 02/13/18 04:46 DC 02/13/18 04:53 1,000 MLS/HR Vital Signs/I&O 02/13/18 04:33 Temp 97.4 Pulse 121 Resp 25 B/P (MAP) 135/83 Pulse Ox 100 O2 Delivery Room Air Capillary Refill : Progress Note : Progress Note Seen and evaluated. IV, labs, UA and UDS ordered. Normal saline 1 L bolus. GI cocktail ordered. Monitor patient. Did talk with her at length about methamphetamine abuse and working to get clean as well as community resources including [facility] and local [place]-based initiatives. Patient was appreciative of the information and conversation. 0600: Repeat fluids bolus with LR 1 L. Toradol 30 mg IV given. She is doing better. UTI suspected. Keflex 500 mg by mouth given. Discharged home with return precautions. Patient verbalize understanding instructions and agreement with plan. Departure Impression Primary Impression: Urinary tract infection Qualified Codes: N30.00 - Acute cystitis without hematuria Additional Impression: Methamphetamine abuse Disposition: HOME, SELF-CARE Condition: Improved Departure-Patient Inst. Decision time for Depature: 06:15 Referrals: [facility] (PCP/Family) Primary Care Physician Patient Instructions: Acute Abdomen (Belly Pain), Adult (DC), Methamphetamine, Urinary Tract Infection, Adult (DC) Add. Discharge Instructions: All discharge instructions reviewed with patient and/or family. Voiced understanding. Stop using methamphetamine. You should follow-up with the programs that were given to you including [facility] and restore and more. Take medication as directed. You may take Tylenol 1000 mg every 8 hours as needed for pain. You may take [id number] Pepcid or the generic famotidine 20 mg daily as needed for stomach upset. Drink plenty of fluids. Eat a bland diet for the next few days and then advance as tolerated. Follow-up with your doctor within one week for recheck and further evaluation as needed. Return for worse pain, fever, vomiting, weakness, breathing problems or other concerns as needed. Scripts Cephalexin (Cephalexin) 500 Mg Tablet 500 MG PO BID, #10 TAB 0 Refills Prov: CESAR SHEARER MD 02/13/18 CESAR SHEARER MD Feb 13, 2018 05:02
[2018-02-13 05:09] LABS: AMPHETAMINE SCREEN, URINE POSITIVE (NEGATIVE); BARBITURATE SCREEN URINE NEGATIVE (NEGATIVE); BENZODIAZEPINES SCREEN URINE NEGATIVE (NEGATIVE); CANNABINOID SCREEN, URINE NEGATIVE (NEGATIVE); COCAINE SCREEN URINE NEGATIVE (NEGATIVE); METHADONE STAT NEGATIVE (NEGATIVE); METHAMPHETAMINE SCREEN URINE S POSITIVE (NEGATIVE); OPIATE SCREEN URINE NEGATIVE (NEGATIVE); OXYCODONE STAT NEGATIVE (NEGATIVE); PROPOXYPHENE STAT NEGATIVE (NEGATIVE); TRICYCLIC ANTIDEPRESSANTS SCRE NEGATIVE (NEGATIVE)
[2018-02-13 05:18] LABS: ALANINE AMINOTRANSFERASE 34 U/L (0-55); ALBUMIN 4.8 GM/DL (3.2-4.5); ALKALINE PHOSPHATASE 29 U/L (40-136); BILIRUBIN,TOTAL 1.7 MG/DL (0.1-1.0); BUN/CREATININE RATIO 17; CALCIUM 10.2 MG/DL (8.5-10.1); CARBON DIOXIDE 15 MMOL/L (21-32); CHLORIDE 107 MMOL/L (98-107); CREATININE SERUM 0.84 MG/DL (0.60-1.30); GFR ESTIMATED > 60; GLUCOSE 115 MG/DL (70-105); POTASSIUM 3.4 MMOL/L (3.6-5.0); SALICYLATE < 5.0 MG/DL (5.0-20.0); SODIUM 141 MMOL/L (135-145); TOTAL PROTEIN 8.8 GM/DL (6.4-8.2)
[2018-02-13 05:25] LABS: ACETAMINOPHEN < 10 UG/ML (10-30)
[2018-02-13] MEDS ORDERED: LACTATED RINGERS 1,000 ML IV ONE (05:27)
[2018-02-13] MEDS ORDERED: KETOROLAC 30 MG/ML VIAL IVP STA (05:27)
[2018-02-13 05:32] LABS: BILIRUBIN,URINE NEGATIVE (NEGATIVE); CLARITY,URINE CLEAR; COLOR,URINE YELLOW; GLUCOSE, URINE (UA) NEGATIVE (NEGATIVE); KETONES,URINE 4+ (NEGATIVE); LEUKOCYTE ESTERASE ,URINE 2+ (NEGATIVE); NITRITE,URINE NEGATIVE (NEGATIVE); PH,URINE 6 (5-9); PROTEIN,URINE 2+ (NEGATIVE); UROBILINOGEN,URINE 4 MG/DL (NORMAL)
[2018-02-13 05:40] LABS: BACTERIA,URINE FEW /HPF; WBC,URINE 0-2 /HPF
[2018-02-13] MEDS ORDERED: CEPH500T PO (06:18)
[2018-02-13] MEDS ORDERED: CEPHALEXIN 250 MG (KEFLEX) CAP PO STA (06:19)
== END 2018-02-13 06:54 | disposition home or self-care (01) ==
LOC: EDUNIT# 04:32 → ER 04:33
DX: N39.0 Urinary tract infection, site not specified (principal); F15.10 Other stimulant abuse, uncomplicated; F41.9 Anxiety disorder, unspecified; F32.9 Major depressive disorder, single episode, unspecified; G43.909 Migraine, unspecified, not intractable, without status migrainosus; G40.909 Epilepsy, unspecified, not intractable, without status epilepticus; Z77.22 Contact with and (suspected) exposure to environmental tobacco smoke (acute) (chronic); Z90.89 Acquired absence of other organs; Z87.42 Personal history of other diseases of the female genital tract; Z88.5 Allergy status to narcotic agent; Z88.1 Allergy status to other antibiotic agents; Z88.6 Allergy status to analgesic agent
CPT/HCPCS: 36415; 80053; 80306; 80320; 80329; 81000; 85025; 87088; 96360; 96361

== ENCOUNTER 2018-05-30 16:06 | Emergency (ER) | payer SELFPAY ==
[~2018-05-30] VITALS: Ht 160 cm; Wt 99.8 kg
[~2018-05-30 16:06] MED LIST changes: -BENZ-13 PO; +BENZ100C18 PO; +CEPH500T PO
--- NOTE | 2018-05-30 16:43 | ED Abdominal Pain ---
General Chief Complaint: Abdominal/GI Problems Stated Complaint: VOMTING,UNABLE TO EAT/DRINK Nursing Triage Note: PT HAS BEEN VOMITING FOR THE LAST TWO DAYS, UNABLE TO HOLD DOWN FLUIDS. PT VERBALIZED RUQ PAIN THAT RADIATES TO THE LLQ UPON PALPATION Sepsis Screen: No Definite Risk Source of Information: Patient Exam Limitations: No Limitations History of Present Illness Date Seen by Provider: May 30, 2018 Time Seen by Provider: 16:38 Initial Comments Patient is a 18-year-old female who presents to the emergency room with complaints of nausea and vomiting for the past week. She reports generalized abdominal cramping and right upper quadrant and left lower quadrant pain on palpation. She sees Andrés Lawson at [facility] but has not been in to see him. She denies fever, diarrhea, urinary tract infection symptoms, and constipation Severity/Quality: Cramping Location: Generalized Abdomen Radiation: No Radiation Associated Symptoms: Nausea/Vomiting Allergies and Home Medications Allergies Coded Allergies: codeine (Verified Allergy, Mild, 12/23/13) guaifenesin (Verified Allergy, Mild, 12/23/13) hydrocodone (Unverified Allergy, Unknown, 05/15/14) Home Medications Cephalexin 500 Mg Tablet, 500 MG PO BID Prescribed by: CESAR SHEARER on 02/13/18 0618 Ondansetron 4 Mg Tab.rapdis, 4 MG SL Q4H PRN for NAUSEA/VOMITING-1ST LINE Prescribed by: EM HOLLINS on 05/30/181853 Sulfamethoxazole/Trimethoprim 1 Each Tablet, 1 EACH PO BID Prescribed by: EM HOLLINS on 05/30/181853 Patient Home Medication List Home Medication List Reviewed: Yes Review of Systems Review of Systems Constitutional: see HPI; No chills, No fever Gastrointestinal: See HPI, Nausea, Vomiting All Other Systems Reviewed Negative Unless Noted: Yes Past Crhoqhn-Uakaoz-Gsgfua Hx Past Med/Social Hx: Reviewed Nursing Past Med/Soc Hx Patient Social History Drug of Choice: meth 2nd Hand Smoke Exposure: Yes Recent Foreign Travel: No Contact w/Someone Who Travel: No Recent Infectious Disease Expo: No Recent Hopitalizations: No Immunizations Up To Date Tetanus Booster (TDap): Less than 5yrs PED Vaccines UTD: Yes Seasonal Allergies Seasonal Allergies: No Past Medical History Surgeries: Yes Adenoidectomy, Tonsillectomy Respiratory: Yes Asthma Cardiac: No Neurological: Yes ((stress induced seizures) PER PT) Headaches /Migraines, Seizure Disorder : No (PT IS UNSURE) Last Menstrual Period: Mar 29, 2018 Reproductive Disorders: No Female Reproductive Disorders: Menstrual Problems, Ovarian Cyst Sexually Transmitted Disease: No Gastrointestinal: No Musculoskeletal: No Endocrine: No Cancer: No Psychosocial: Yes Sleep Difficulties, Anxiety, Depression Integumentary: No Blood Disorders: No Family Medical History Reviewed Nursing Family Hx No Pertinent Family Hx, Heart Disease, Cancer, Stroke Physical Exam Vital Signs Vital Signs - First Documented 05/30/18 16:25 Temp 96.8 Pulse 87 Resp 18 B/P (MAP) 140/92 (108) Pulse Ox 99 O2 Delivery Room Air Capillary Refill : Less Than 3 Seconds Height/Weight/BMI Height: 5'3.00" Weight: 220lbs. 4oz. [id number]; 28.12 BMI Method:Stated General Appearance: WD/WN, no apparent distress Respiratory: chest non-tender, lungs clear, normal breath sounds, no respiratory distress, no accessory muscle use Cardiovascular: normal peripheral pulses, regular rate, rhythm, no edema, no gallop, no JVD, no murmur Gastrointestinal: normal bowel sounds, non tender, soft, no organomegaly, no pulsatile mass Neurologic/Psychiatric: alert, normal mood/affect, oriented x 3 Skin: normal color, warm/dry Progress/Results/Core Measures Results/Orders Lab Results Laboratory Tests Test 05/30/18 16:07 05/30/18 16:57 05/30/18 17:31 Range/Units Lab Scanned Report Referred Lab Report [id number] White Blood Count 10.9 4.3-11.0 10^3/uL Red Blood Count 4.62 4.35-5.85 10^6/uL Hemoglobin 13.1 11.5-16.0 G/DL Hematocrit 37 35-52 % Mean Corpuscular Volume 81 80-99 FL Mean Corpuscular Hemoglobin 28 25-34 PG Mean Corpuscular Hemoglobin Concent 35 32-36 G/DL Red Cell Distribution Width 13.6 10.0-14.5 % Platelet Count 401 H 130-400 10^3/uL Mean Platelet Volume 10.8 H 7.4-10.4 FL Neutrophils (%) (Auto) 65 42-75 % Lymphocytes (%) (Auto) 24 12-44 % Monocytes (%) (Auto) 10 0-12 % Eosinophils (%) (Auto) 1 0-10 % Basophils (%) (Auto) 0 0-10 % Neutrophils # (Auto) 7.1 1.8-7.8 X 10^3 Lymphocytes # (Auto) 2.6 1.0-4.0 X 10^3 Monocytes # (Auto) 1.1 H 0.0-1.0 X 10^3 Eosinophils # (Auto) 0.1 0.0-0.3 10^3/uL Basophils # (Auto) 0.0 0.0-0.1 10^3/uL Sodium Level 141 135-145 MMOL/L Potassium Level 3.8 3.6-5.0 MMOL/L Chloride Level 106 98-107 MMOL/L Carbon Dioxide Level 23 21-32 MMOL/L Anion Gap 12 5-14 MMOL/L Blood Urea Nitrogen 10 7-18 MG/DL Creatinine 0.70 0.60-1.30 MG/DL Estimat Glomerular Filtration Rate > 60 BUN/Creatinine Ratio 14 Glucose Level 96 70-105 MG/DL Calcium Level 10.0 8.5-10.1 MG/DL Corrected Calcium 8.5-10.1 MG/DL Total Bilirubin 0.8 0.1-1.0 MG/DL Aspartate Amino Transf (AST/SGOT) 20 5-34 U/L Alanine Aminotransferase (ALT/SGPT) 24 0-55 U/L Alkaline Phosphatase 25 L 40-136 U/L Total Protein 7.7 6.4-8.2 GM/DL Albumin 4.6 H 3.2-4.5 GM/DL Amylase Level 46 25-125 U/L Lipase 14 8-78 U/L Serum Test, Qualitative NEGATIVE NEGATIVE Urine Color YELLOW Urine Clarity VERY CLOUDY H Urine pH 8 5-9 Urine Specific [place] 1.015 L 1.016-1.022 Urine Protein 1+ H NEGATIVE Urine Glucose (UA) NEGATIVE NEGATIVE Urine Ketones NEGATIVE NEGATIVE Urine Nitrite NEGATIVE NEGATIVE Urine Bilirubin NEGATIVE NEGATIVE Urine Urobilinogen NORMAL NORMAL MG/DL Urine Leukocyte Esterase 3+ H NEGATIVE Urine RBC (Auto) NEGATIVE NEGATIVE Urine RBC NONE /HPF Urine WBC 5-10 H /HPF Urine Squamous Epithelial Cells 5-10 /HPF Urine Crystals PRESENT H /LPF Urine Amorphous Sediment MOD ANA PHOSPHATE H /LPF Urine Bacteria FEW H /HPF Urine Casts NONE /LPF Urine Mucus LARGE H /LPF Urine Culture Indicated YES Micro Results Microbiology 05/30/18 Urine Culture - Preliminary, Resulted See Report My Orders Orders - EM HOLLINS Ondansetron Injection (Zofran Injectio (05/30/18 16:45) Ns Iv 1000 Ml (Sodium Chloride 0.9%) (05/30/18 16:45) Comprehensive Metabolic Panel (05/30/18 16:36) Lipase (05/30/18 16:36) Amylase (05/30/18 16:36) Ua Culture If Indicated (05/30/18 16:36) Hcg,Qualitative Serum (05/30/18 16:36) Saline Lock/Iv-Start (05/30/18 16:36) Cbc With Automated Diff (05/30/18 16:36) Urine Culture (05/30/18 17:31) Iv Push Lactation Specialist Ed (05/30/18 ) Medications Given in ED Vital Signs/I&O 05/30/18 05/30/18 16:25 19:03 Temp 96.8 98.4 Pulse 87 99 Resp 18 20 B/P (MAP) 140/92 (108) 134/106 Pulse Ox 99 100 O2 Delivery Room Air Room Air Blood Pressure Mean: 108 Progress Progress Note : Time: 18:45 Progress Note I have seen and evaluated the patient. I have informed her of laboratory finding. She states that she frequently get urinary tract infections and I will be treating with bactrim. She agrees with plan of care, close follow up with pcp , return precautions were given. Departure Impression Primary Impression: Nausea and vomiting Additional Impressions: Abdominal pain Urinary tract infection Disposition: 01 HOME, SELF-CARE Condition: Stable/Unchanged Departure-Patient Inst. Decision time for Depature: 18:50 Referrals: [facility] (PCP/Family) Primary Care Physician Patient Instructions: Urinary Tract Infection, Adult (DC), Acute Abdomen ( Belly Pain), Adult (DC) Add. Discharge Instructions: Take medication as directed. Follow-up with your primary care provider within 1 week for recheck. Drink plenty of clear liquids to stay hydrated. Return back to the emergency room for any worsening symptoms or concerns as needed. All discharge instructions reviewed with patient and/or family. Voiced understanding. Scripts Ondansetron (Zofran Odt) 4 Mg Tab.rapdis 4 MG SL Q4H PRN for NAUSEA/VOMITING-1ST LINE, #14 TAB Prov: EM HOLLINS 05/30/18 Sulfamethoxazole/Trimethoprim (Bactrim Ds Tablet) 1 Each Tablet 1 EACH PO BID for 7 Days, #14 TAB Prov: EM HOLLINS 05/30/18 ME HOLLINS May 30, 2018 16:43
[2018-05-30] MEDS ORDERED: ONDANSETRON 4 MG/2 ML (SDV) Z0FRAN IVP ONE (16:45)
[2018-05-30] MEDS ORDERED: NS IV 1000 ML 1,000 ML IV SCH (16:45)
[2018-05-30 17:17] LABS: BASOPHILS % (AUTO) 0 % (0-10); EOSINOPHILS # (AUTO) 0.1 10^3/uL (0.0-0.3); EOSINOPHILS % (AUTO) 1 % (0-10); HEMATOCRIT 37 % (35-52); HEMOGLOBIN 13.1 G/DL (11.5-16.0); LYMPHOCYTES # (AUTO) 2.6 X 10^3 (1.0-4.0); LYMPHOCYTES % (AUTO) 24 % (12-44); MEAN CORPUSCULAR HEMOGLOBIN 28 PG (25-34); MEAN CORPUSCULAR HGB CONC 35 G/DL (32-36); MEAN CORPUSCULAR VOLUME 81 FL (80-99); MEAN PLATELET VOLUME 10.8 FL (7.4-10.4); MONOCYTES # (AUTO) 1.1 X 10^3 (0.0-1.0); MONOCYTES % (AUTO) 10 % (0-12); NEUTROPHILS # (AUTO) 7.1 X 10^3 (1.8-7.8); NEUTROPHILS % (AUTO) 65 % (42-75); PLATELET COUNT 401 10^3/uL (130-400); RED BLOOD COUNT 4.62 10^6/uL (4.35-5.85); RED CELL DISTRIBUTION WIDTH 13.6 % (10.0-14.5); WHITE BLOOD COUNT 10.9 10^3/uL (4.3-11.0)
[2018-05-30 17:37] LABS: ALANINE AMINOTRANSFERASE 24 U/L (0-55); ALBUMIN 4.6 GM/DL (3.2-4.5); ALKALINE PHOSPHATASE 25 U/L (40-136); AMYLASE 46 U/L (25-125); BILIRUBIN,TOTAL 0.8 MG/DL (0.1-1.0); BUN/CREATININE RATIO 14; CARBON DIOXIDE 23 MMOL/L (21-32); CHLORIDE 106 MMOL/L (98-107); GFR ESTIMATED > 60; GLUCOSE 96 MG/DL (70-105); LIPASE 14 U/L (8-78); POTASSIUM 3.8 MMOL/L (3.6-5.0); SODIUM 141 MMOL/L (135-145); TOTAL PROTEIN 7.7 GM/DL (6.4-8.2)
[2018-05-30 17:37] LABS: BILIRUBIN,URINE NEGATIVE (NEGATIVE); CLARITY,URINE VERY CLOUDY; COLOR,URINE YELLOW; GLUCOSE, URINE (UA) NEGATIVE (NEGATIVE); KETONES,URINE NEGATIVE (NEGATIVE); LEUKOCYTE ESTERASE ,URINE 3+ (NEGATIVE); NITRITE,URINE NEGATIVE (NEGATIVE); PH,URINE 8 (5-9); PROTEIN,URINE 1+ (NEGATIVE); UROBILINOGEN,URINE NORMAL (NORMAL)
[2018-05-30 17:49] LABS: AMORPHOUS SEDIMENT,UR MOD AMOR PHOSPHATE /LPF; BACTERIA,URINE FEW /HPF
[2018-05-30] MEDS ORDERED: ESCI5TAB PO (18:24)
[2018-05-30] MEDS ORDERED: AMIT10TA6 PO (18:24)
[2018-05-30] MEDS ORDERED: ONDA4TAB8 SL (18:54)
[2018-05-30] MEDS ORDERED: SULF1TAB35 PO (18:54)
[2018-05-30 19:03] VITALS: BP 134/106
== END 2018-05-30 19:03 | disposition home or self-care (01) ==
LOC: EDUNIT# 16:06 → ER 16:07
DX: N39.0 Urinary tract infection, site not specified (principal); J45.909 Unspecified asthma, uncomplicated; G43.909 Migraine, unspecified, not intractable, without status migrainosus; G40.909 Epilepsy, unspecified, not intractable, without status epilepticus; F41.9 Anxiety disorder, unspecified; F32.9 Major depressive disorder, single episode, unspecified; Z87.448 Personal history of other diseases of urinary system; Z88.5 Allergy status to narcotic agent; Z88.8 Allergy status to other drugs, medicaments and biological substances; Z77.22 Contact with and (suspected) exposure to environmental tobacco smoke (acute) (chronic); Z90.89 Acquired absence of other organs
CPT/HCPCS: 36415; 80053; 81000; 82150; 83690; 84703; 85025; 87088; 96361; 96374

== ENCOUNTER 2019-05-14 02:37 | Emergency (ER) | payer SELFPAY ==
[~2019-05-14] VITALS: Ht 157.5 cm; Wt 83.9 kg
[~2019-05-14 02:37] MED LIST changes: +AMIT10TA6 PO; +ESCI5TAB PO; +METR-145 PO; -METR500T21 PO; +ONDA4TAB8 SL
--- NOTE | 2019-05-14 03:04 | ED Fall/Injury ---
General Chief Complaint: Abdominal/GI Problems Stated Complaint: HEAD LACERATION/FALL Source: patient Exam Limitations: no limitations History of Present Illness Date Seen by Provider: May 14, 2019 Time Seen by Provider: 02:41 Initial Comments This 19-year-old young lady presents to the emergency room with injury to the scalp that occurred sometime between 22:00 and 23:00. She was walking on a sidewalk when she tripped and fell. She does not know what she struck her head on. She has a small area on the left posterior scalp that is tender and has a scabbed wound. She denies loss of consciousness. She reports having 2 brief seizures in which she was not responsive to her friends and had mild tremors. She has had seizures like this in the past which she calls "stress induced seizures". She is feeling much better now. Her last seizure like episode prior to today was about 2 years ago. She is not treated for this. She denies any drug or alcohol use. She does not know when her last tetanus immunization was. She denies any other injuries. Allergies and Home Medications Allergies Coded Allergies: codeine (Verified Allergy, Mild, 12/23/13) guaifenesin (Verified Allergy, Mild, 12/23/13) hydrocodone (Unverified Allergy, Unknown, 05/15/14) Home Medications Cephalexin 500 Mg Tablet, 500 MG PO BID Prescribed by: CESAR SHEARER on 02/13/1818 Ondansetron 4 Mg Tab.rapdis, 4 MG SL Q4H PRN for NAUSEA/VOMITING-1ST LINE Prescribed by: EM HOLLINS on 05/30/181853 Sulfamethoxazole/Trimethoprim 1 Each Tablet, 1 EACH PO BID Prescribed by: EM HOLLINS on 05/30/181853 Patient Home Medication List Home Medication List Reviewed: Yes Review of Systems Review of Systems Constitutional: no symptoms reported Eyes: No Symptoms Reported Ears, Nose, Mouth, Throat: no symptoms reported Respiratory: no symptoms reported Cardiovascular: no symptoms reported Gastrointestinal: no symptoms reported Genitourinary: no symptoms reported : No Musculoskeletal: see HPI Skin: see HPI Psychiatric/Neurological: See HPI Past Xwiaqyw-Fpntbg-Ljdehz Hx Past Med/Social Hx: Reviewed and Corrections made Patient Social History Alcohol Use: Denies Use Drug of Choice: meth Smoking Status: Current Everyday Smoker Type Used: Cigarettes 2nd Hand Smoke Exposure: Yes Recent Foreign Travel: No Contact w/Someone Who Travel: No Recent Hopitalizations: No Physical Abuse: No Sexual Abuse: No Mistreated: No Fear: No Immunizations Up To Date Tetanus Booster (TDap): Unknown PED Vaccines UTD: Yes Seasonal Allergies Seasonal Allergies: No Past Medical History Surgeries: Yes Adenoidectomy, Tonsillectomy Respiratory: No Asthma Cardiac: No Neurological: Yes Headaches /Migraines, Seizure Disorder Reproductive Disorders: No Female Reproductive Disorders: Polycystic Ovarian Dis Sexually Transmitted Disease: No Genitourinary: No Gastrointestinal: No Musculoskeletal: No Endocrine: No HEENT: No Cancer: No Psychosocial: Yes Anxiety Integumentary: No Blood Disorders: No Family Medical History No Pertinent Family Hx, Heart Disease, Cancer, Stroke Physical Exam Vital Signs Vital Signs - First Documented 05/14/19 05/14/19 02:53 03:10 Temp 98.2 Pulse 110 Resp 18 B/P (MAP) 144/99 (114) Pulse Ox 98 Capillary Refill : Height, Weight, BMI Height: 5'3.00" Weight: 220lbs. 4oz. [id number]; 28.12 BMI Method:Stated General Appearance: WD/WN, no apparent distress HEENT: PERRL/EOMI, other (there is a scabbed wound on the left parietal scalp with tenderness and mild swelling. There is no gaping evident. No active bleeding.) Neck: non-tender, normal inspection Cardiovascular: regular rate, rhythm, no edema, no murmur Respiratory: lungs clear, normal breath sounds, no respiratory distress, no accessory muscle use Gastrointestinal: normal bowel sounds, non tender, soft Extremities: non-tender, normal inspection, no pedal edema Neurologic/Psychiatric: internal medicine specialist II-XII nml as tested, no motor/sensory deficits, alert, normal mood/affect, oriented x 3 Skin: normal color, warm/dry Progress/Results/Core Measures Results/Orders My Orders Orders - ADRIANNE SENIOR MD Dipht,Pertuss(Acell),Tet Adult (Boostrix (05/14/19 03:15) Medications Given in ED Current Medications Medications Dose Ordered Sig/Dashawn Route Start Time Stop Time Status Last Admin Dose Admin Diphtheria/ Tetanus/Acell Pertussis 0.5 ml ONCE ONCE IM 05/14/19 03:15 05/14/19 03:15 DC 05/14/19 03:10 0.5 ML Vital Signs/I&O 05/14/19 05/14/19 02:53 03:10 Temp 98.2 98.2 Pulse 110 102 Resp 18 18 B/P (MAP) 144/99 (114) 123/108 (113) Pulse Ox 98 Progress Progress Note : Progress Note Tetanus booster was administered. I discussed risks and benefits of CT head with patient. Patient acknowledged risks and benefits but elected to forego the CT. Return precautions were discussed. Patient was not concerned about her seizure-like activity as she states these episodes can happen under stressful conditions. Departure Impression Primary Impression: Fall on same level from tripping as cause of accidental injury Additional Impressions: Laceration of scalp Qualified Codes: S01.01XA - Laceration without foreign body of scalp, initial encounter Seizure disorder Disposition: HOME, SELF-CARE Condition: Improved Departure-Patient Inst. Decision time for Depature: 03:05 Referrals: [facility] (PCP/Family) Primary Care Physician Patient Instructions: Minor Head Injury Add. Discharge Instructions: For pain you may use Tylenol (acetaminophen) up to 1000 mg every 6 hours as needed. You may also apply ice in 20 minute intervals. Return to care or call 911 if you develop worsening symptoms of head injury including vomiting, changes in vision, confusion, numbness or weakness of any part of your body, recurrent seizures, intensifying headache, etc. All discharge instructions reviewed with patient and/or family. Voiced understanding. ADRIANNE SENIOR MD May 14, 2019 03:04
[2019-05-14 03:10] VITALS: BP 123/108
[2019-05-14] MEDS ORDERED: TETANUS,DIPTH,PERTUSS P/F (BOOSTRIX) 0.5 ML VIAL IM ONE (03:15)
== END 2019-05-14 03:11 | disposition home or self-care (01) ==
LOC: EDUNIT# 02:37 → ER 02:40
DX: S01.01XA Laceration without foreign body of scalp, initial encounter (principal); G40.909 Epilepsy, unspecified, not intractable, without status epilepticus; J45.909 Unspecified asthma, uncomplicated; G43.909 Migraine, unspecified, not intractable, without status migrainosus; F41.9 Anxiety disorder, unspecified; F17.210 Nicotine dependence, cigarettes, uncomplicated; Z88.5 Allergy status to narcotic agent; Z88.8 Allergy status to other drugs, medicaments and biological substances; Z90.89 Acquired absence of other organs; W18.30XA Fall on same level, unspecified, initial encounter
CPT/HCPCS: 90715; 99284

== ENCOUNTER 2020-08-01 12:45 | Emergency (ER) | payer SELFPAY ==
[~2020-08-01] VITALS: Ht 157 cm; Wt 77.0 kg
[~2020-08-01 12:45] MED LIST changes: -FLUO20CA25; +FLUO20CA46; +TRM50T PO
--- NOTE | 2020-08-01 13:11 | NUR ---
STATES TAKES NO MEDS
[2020-08-01] MEDS ORDERED: LACTATED RINGERS 1,000 ML IV ONE (13:20)
[2020-08-01] MEDS ORDERED: ONDANSETRON 4 MG/2 ML (SDV) Z0FRAN IVP ONE ×2 (13:30→15:45)
[2020-08-01] MEDS ORDERED: FAMOTIDINE 20MG/2ML IV (PEPCID) IVP ONE (13:30)
--- NOTE | 2020-08-01 13:43 | ED Psychosocial ---
General Chief Complaint: Psych/Social Disorder Stated Complaint: PANIC ATTACK Nursing Triage Note: PT ARRIVED PER EMS, PT CO OF ANXIETY, PT STATES WAS IN A CROWDED DIRTY HOUSE AND BECAME ANXIOUS WITH ALL THE PEOPLE IN CROWDED HOUSE. PT STATES HAS TAKEN 10 ALEIVE AT 0400 THIS AM FOR CASTILLO, STATES CASTILLO BETTER NOW. Source: patient, EMS Exam Limitations: no limitations History of Present Illness Date Seen by Provider: Aug 01, 2020 Time Seen by Provider: 12:55 Initial Comments This 20-year-old young lady presents to the emergency room via EMS for symptoms of throat tightness, anxiety, and shortness of breath. She was in the home of acquaintances to help them pack and move. She states the quarters were tight with too many people. Hoarding was a problem which added to her anxiety. She felt tingling in her distal extremities. EMS was under the impression she was suffering from an anxiety attack. She feels much better now that she is away from the group of people and out of the hoarding environment. Additionally she reports having a headache all day. She took up to 10 Aleve this morning to try to treat her headache. She still has some headache. Poison control was contacted and recommended a 4-hour observation with some basic lab evaluation. Allergies and Home Medications Allergies Coded Allergies: codeine (Verified Allergy, Mild, 12/23/13) guaifenesin (Verified Allergy, Mild, 12/23/13) hydrocodone (Unverified Allergy, Unknown, 05/15/14) Home Medications Cephalexin 500 Mg Tablet, 500 MG PO BID Prescribed by: CESAR SHEARER on 02/13/18 0618 Cephalexin 500 Mg Capsule, 500 MG PO TID Prescribed by: ADRIANNE ADKINS on 08/01/20 1459 Ondansetron 4 Mg Tab.rapdis, 4 MG SL Q4H PRN for NAUSEA/VOMITING-1ST LINE Prescribed by: EM HOLLINS on 05/30/181853 Sulfamethoxazole/Trimethoprim 1 Each Tablet, 1 EACH PO BID Prescribed by: EM HOLLINS on 05/30/181853 Patient Home Medication List Home Medication List Reviewed: Yes Review of Systems Constitutional: no symptoms reported EENTM: no symptoms reported Respiratory: see HPI Cardiovascular: no symptoms reported Gastrointestinal: no symptoms reported Genitourinary: no symptoms reported : No LMP: Jul 23, 2020 Musculoskeletal: no symptoms reported Skin: no symptoms reported Psychiatric/Neurological: See HPI Past Lvvigif-Nbqgjj-Jnylui Hx Past Med/Social Hx: Reviewed Nursing Past Med/Soc Hx Patient Social History Alcohol Use: Occasionally Uses Recreational Drug Use: Yes (PT STATES HX DRUG ABUSE) Drug of Choice: meth Smoking Status: Current Everyday Smoker Type Used: Cigarettes, Electronic/Vapor 2nd Hand Smoke Exposure: Yes Recent Foreign Travel: No Contact w/Someone Who Travel: No Recent Infectious Disease Expo: No Recent Hopitalizations: No Physical Abuse: No Sexual Abuse: No Immunizations Up To Date Tetanus Booster (TDap): Unknown PED Vaccines UTD: Yes Seasonal Allergies Seasonal Allergies: No Past Medical History Surgeries: Yes Adenoidectomy, Tonsillectomy Respiratory: No Asthma Cardiac: No Neurological: Yes Headaches /Migraines, Seizure Disorder Last Menstrual Period: Jul 26, 2020 Reproductive Disorders: No Female Reproductive Disorders: Polycystic Ovarian Dis Sexually Transmitted Disease: No Genitourinary: No Gastrointestinal: No Musculoskeletal: No Endocrine: No HEENT: No Cancer: No Psychosocial: Yes Anxiety, PTSD Integumentary: No Blood Disorders: No Family Medical History No Pertinent Family Hx, Heart Disease, Cancer, Stroke Physical Exam Vital Signs - First Documented 08/01/20 12:45 Temp 36.3 Pulse 105 Resp 22 B/P (MAP) 145/98 (114) Pulse Ox 98 O2 Delivery Room Air Capillary Refill : Less Than 3 Seconds Height, Weight, BMI Height: 5'2.00" Weight: 185lbs. 4oz. [id number]; 31.00 BMI Method:Stated General Appearance: WD/WN, no apparent distress HEENT: PERRL/EOMI, normal ENT inspection, pharynx normal Neck: normal inspection Respiratory: lungs clear, normal breath sounds, no respiratory distress, no accessory muscle use Cardiovascular: regular rate, rhythm, no edema, no murmur Gastrointestinal: normal bowel sounds, non tender, soft Extremities: normal inspection Neurologic/Psychiatric: rigging helper II-XII nml as tested, no motor/sensory deficits, alert, oriented x 3, other (Mildly anxious) Appearance/Memory: appropriate appearance, appropriate insight, neat Behavior/Eye Contact: cooperative, good eye contact, normal speech Skin: normal color, warm/dry Progress/Results/Core Measures Results/Orders Lab Results Laboratory Tests Test 08/01/20 13:08/01/20 13:45 Range/Units Urine Color YELLOW Urine Clarity CLEAR Urine pH 7.0 5-9 Urine Specific [place] 1.010 L 1.016-1.022 Urine Protein NEGATIVE NEGATIVE Urine Glucose (UA) NEGATIVE NEGATIVE Urine Ketones 1+ H NEGATIVE Urine Nitrite NEGATIVE NEGATIVE Urine Bilirubin NEGATIVE NEGATIVE Urine Urobilinogen 0.2 < = 1.0 MG/DL Urine Leukocyte Esterase 3+ H NEGATIVE Urine RBC (Auto) 1+ H NEGATIVE Urine RBC NONE /HPF Urine WBC 50-100 H /HPF Urine Squamous Epithelial Cells 25-50 H /HPF Urine Crystals NONE /LPF Urine Amorphous Sediment LARGE ANA URATES H /LPF Urine Bacteria MODERATE H /HPF Urine Casts NONE /LPF Urine Mucus NEGATIVE /LPF Urine Trichomonas FEW H /HPF Urine Culture Indicated YES Urine Opiates Screen NEGATIVE NEGATIVE Urine Oxycodone Screen NEGATIVE NEGATIVE Urine Methadone Screen NEGATIVE NEGATIVE Urine Propoxyphene Screen NEGATIVE NEGATIVE Urine Barbiturates Screen NEGATIVE NEGATIVE Ur Tricyclic Antidepressants Screen NEGATIVE NEGATIVE Urine Phencyclidine Screen NEGATIVE NEGATIVE Urine Amphetamines Screen POSITIVE H NEGATIVE Urine Methamphetamines Screen POSITIVE H NEGATIVE Urine Benzodiazepines Screen NEGATIVE NEGATIVE Urine Cocaine Screen NEGATIVE NEGATIVE Urine Cannabinoids Screen NEGATIVE NEGATIVE White Blood Count 10.8 4.3-11.0 10^3/uL Red Blood Count 4.93 3.80-5.11 10^6/uL Hemoglobin 13.9 11.5-16.0 g/dL Hematocrit 42 35-52 % Mean Corpuscular Volume 86 80-99 fL Mean Corpuscular Hemoglobin 28 25-34 pg Mean Corpuscular Hemoglobin Concent 33 32-36 g/dL Red Cell Distribution Width 12.8 10.0-14.5 % Platelet Count 377 130-400 10^3/uL Mean Platelet Volume 10.3 9.0-12.2 fL Immature Granulocyte % (Auto) 0 % Neutrophils (%) (Auto) 69 42-75 % Lymphocytes (%) (Auto) 22 12-44 % Monocytes (%) (Auto) 8 0-12 % Eosinophils (%) (Auto) 1 0-10 % Basophils (%) (Auto) 1 0-10 % Neutrophils # (Auto) 7.5 1.8-7.8 10^3/uL Lymphocytes # (Auto) 2.3 1.0-4.0 10^3/uL Monocytes # (Auto) 0.8 0.0-1.0 10^3/uL Eosinophils # (Auto) 0.1 0.0-0.3 10^3/uL Basophils # (Auto) 0.1 0.0-0.1 10^3/uL Immature Granulocyte # (Auto) 0.0 0.0-0.1 10^3/uL Sodium Level 138 135-145 MMOL/L Potassium Level 3.8 3.6-5.0 MMOL/L Chloride Level 105 98-107 MMOL/L Carbon Dioxide Level 19 L 21-32 MMOL/L Anion Gap 14 5-14 MMOL/L Blood Urea Nitrogen 10 7-18 MG/DL Creatinine 0.79 0.60-1.30 MG/DL Estimat Glomerular Filtration Rate > 60 BUN/Creatinine Ratio 13 Glucose Level 101 70-105 MG/DL Calcium Level 9.4 8.5-10.1 MG/DL Corrected Calcium 8.5-10.1 MG/DL Total Bilirubin 1.4 H 0.1-1.0 MG/DL Aspartate Amino Transf (AST/SGOT) 23 5-34 U/L Alanine Aminotransferase (ALT/SGPT) 17 0-55 U/L Alkaline Phosphatase 30 L 40-136 U/L Total Protein 8.3 H 6.4-8.2 GM/DL Albumin 4.6 H 3.2-4.5 GM/DL TSH Sherman Testing 0.86 0.35-4.94 UIU/ML Serum Test, Qualitative NEGATIVE NEGATIVE Salicylates Level < 5.0 L 5.0-20.0 MG/DL Acetaminophen Level < 10 L 10-30 UG/ML Serum Alcohol < 10 <10 MG/DL My Orders Orders - ADRIANNE SENIOR MD Ua Culture If Indicated (08/01/20 13:20) Cbc With Automated Diff (08/01/20 13:20) Comprehensive Metabolic Panel (08/01/20 13:20) Alcohol (08/01/20 13:20) Drug Screen Stat (Urine) (08/01/20 13:20) Acetaminophen (08/01/20 13:20) Salicylate (08/01/20 13:20) Ed Iv/Invasive Line Start (08/01/20 13:20) Thyroid Analyzer (08/01/20 13:20) Monitor-Rhythm Ecg Trace Only (08/01/20 13:20) Ed Iv/Invasive Line Start (08/01/20 13:20) Lactated Ringers (Lr 1000 Ml Iv Solution (08/01/20 13:20) Ondansetron Injection (Zofran Injectio (08/01/20 13:30) Famotidine Injection (Pepcid Injection) (08/01/20 13:30) Hcg,Qualitative Serum (08/01/20 13:20) Urine Culture (08/01/20 13:07) Metronidazole Tablet (Flagyl Tablet) (08/01/20 14:45) Ceftriaxone For Iv Use (Rocephin For I (08/01/20 14:45) Azithromycin Tablet (Zithromax Tablet) (08/01/20 14:45) Ondansetron Injection (Zofran Injectio (08/01/20 15:45) Ondansetron Injection (Zofran Injectio (08/01/20 15:33) Medications Given in ED Current Medications Medications Dose Ordered Sig/Dashawn Route Start Time Stop Time Status Last Admin Dose Admin Azithromycin 1,000 mg ONCE ONCE PO 08/01/20 14:45 08/01/20 14:46 DC 08/01/20 15:05 1,000 MG Ceftriaxone Sodium 1000 mg/ Sterile Water 10 ml @ 200 mls/hr ONCE ONCE IV 08/01/20 14:45 08/01/20 14:47 DC 08/01/20 15:04 200 MLS/HR Famotidine 20 mg ONCE ONCE IVP 08/01/20 13:30 08/01/20 13:31 DC 08/01/20 13:49 20 MG Lactated Ringer's 1,000 ml @ 0 mls/hr Q0M ONCE IV 08/01/20 13:20 08/01/20 13:22 DC 08/01/20 13:48 1,000 MLS/HR Metronidazole 2,000 mg ONCE ONCE PO 08/01/20 14:45 08/01/20 14:46 DC 08/01/20 15:05 2,000 MG Ondansetron HCl 4 mg ONCE ONCE IVP 08/01/20 13:30 08/01/20 13:31 DC 08/01/20 13:48 4 MG Ondansetron HCl 4 mg STK-MED ONCE .ROUTE 08/01/20 15:33 08/01/20 15:35 DC 08/01/20 15:37 4 MG Vital Signs/I&O 08/01/20 08/01/20 12:45 16:17 Temp 36.3 Pulse 105 86 Resp 22 14 B/P (MAP) 145/98 (114) 139/100 Pulse Ox 98 98 O2 Delivery Room Air Room Air Blood Pressure Mean: 114 Progress Progress Note #1: Time: 13:42 Progress Note Poison control was contacted. Further recommendations we will watch her for 4 hours. Basic labs were obtained. IV fluids will be administered. Zofran and Pepcid will be given prophylactically. Progress Note #2: Progress Note Patient was monitored for 4 hours from time of ingestion. She was found to have Trichomonas in her urine and was treated with Flagyl 2 g orally. She also received Rocephin for evidence of urinary tract infection. Azithromycin was added to complete treatment for possible STIs. She was advised to have her partner tested and treated prior to resuming any sexual activity or genital contact. Work-up also revealed a positive methamphetamine screen. I addressed this with the patient. She is working on going to rehab. She needs to obtain photo identification before she can enroll in a rehab program, and she is working on that presently. Patient remained calm after being roomed in a quiet exam room. She was ultimately discharged in good condition. Zofran was given for nausea. Departure Impression Primary Impression: Anxiety Additional Impressions: Medication overdose Qualified Codes: T50.901A - Poisoning by unspecified drugs, medicaments and biological substances, accidental (unintentional), initial encounter Methamphetamine abuse Trichomonal infection Urinary tract infection Qualified Codes: N39.0 - Urinary tract infection, site not specified Disposition: 01 HOME, SELF-CARE Condition: Improved Departure-Patient Inst. Decision time for Depature: 14:52 Referrals: [facility] [place] ([place]/Family) Primary Care Physician Patient Instructions: Drug Abuse Treatment, Trichomoniasis Add. Discharge Instructions: Refrain from methamphetamine use and seek professional treatment. If you would like help with direction for this you may contact the substance abuse treatment program at the [facility] [place] at [phone]. Refrain from any sexual activity or genital contact with others until your partners have been screened and cleared for sexually transmitted infections. Otherwise reinfection could occur. It is important to not exceed recommended dosages on [id number] medications. You may cause serious harm when medications are overused or not used according to directions. Complete your antibiotics for urinary tract infection as prescribed. Return to care if you have worsening symptoms. All discharge instructions reviewed with patient and/or family. Voiced understanding. Scripts Cephalexin (Keflex) 500 Mg Capsule 500 MG PO TID, #20 CAP Prov: ADRIANNE SENIOR MD 08/01/20 ADRIANNE SENIOR MD Aug 01, 2020 13:43
[2020-08-01 13:51] LABS: BASOPHILS # (AUTO) 0.1 10^3/uL (0.0-0.1); BASOPHILS % (AUTO) 1 % (0-10); EOSINOPHILS # (AUTO) 0.1 10^3/uL (0.0-0.3); EOSINOPHILS % (AUTO) 1 % (0-10); HEMATOCRIT 42 % (35-52); HEMOGLOBIN 13.9 g/dL (11.5-16.0); LYMPHOCYTES # (AUTO) 2.3 10^3/uL (1.0-4.0); LYMPHOCYTES % (AUTO) 22 % (12-44); MEAN CORPUSCULAR HEMOGLOBIN 28 pg (25-34); MEAN CORPUSCULAR HGB CONC 33 g/dL (32-36); MEAN CORPUSCULAR VOLUME 86 fL (80-99); MEAN PLATELET VOLUME 10.3 fL (9.0-12.2); MONOCYTES # (AUTO) 0.8 10^3/uL (0.0-1.0); MONOCYTES % (AUTO) 8 % (0-12); NEUTROPHILS # (AUTO) 7.5 10^3/uL (1.8-7.8); NEUTROPHILS % (AUTO) 69 % (42-75); PLATELET COUNT 377 10^3/uL (130-400); WHITE BLOOD COUNT 10.8 10^3/uL (4.3-11.0)
[2020-08-01 14:02] LABS: ALBUMIN 4.6 GM/DL (3.2-4.5); CHLORIDE 105 MMOL/L (98-107); POTASSIUM 3.8 MMOL/L (3.6-5.0); SODIUM 138 MMOL/L (135-145)
[2020-08-01 14:03] LABS: BILIRUBIN,URINE NEGATIVE (NEGATIVE); CLARITY,URINE CLEAR; COLOR,URINE YELLOW; GLUCOSE, URINE (UA) NEGATIVE (NEGATIVE); KETONES,URINE 1+ (NEGATIVE); LEUKOCYTE ESTERASE ,URINE 3+ (NEGATIVE); NITRITE,URINE NEGATIVE (NEGATIVE); PROTEIN,URINE NEGATIVE (NEGATIVE)
[2020-08-01 14:04] LABS: CALCIUM 9.4 MG/DL (8.5-10.1)
[2020-08-01 14:05] LABS: GLUCOSE 101 MG/DL (70-105); TOTAL PROTEIN 8.3 GM/DL (6.4-8.2)
[2020-08-01 14:06] LABS: CARBON DIOXIDE 19 MMOL/L (21-32)
[2020-08-01 14:07] LABS: BILIRUBIN,TOTAL 1.4 MG/DL (0.1-1.0)
[2020-08-01 14:09] LABS: ALKALINE PHOSPHATASE 30 U/L (40-136); CREATININE SERUM 0.79 MG/DL (0.60-1.30); GFR ESTIMATED > 60
[2020-08-01 14:10] LABS: BUN/CREATININE RATIO 13
[2020-08-01 14:11] LABS: ACETAMINOPHEN < 10 UG/ML (10-30)
[2020-08-01 14:12] LABS: ALANINE AMINOTRANSFERASE 17 U/L (0-55); SALICYLATE < 5.0 MG/DL (5.0-20.0)
[2020-08-01 14:19] LABS: AMPHETAMINE SCREEN, URINE POSITIVE (NEGATIVE); BARBITURATE SCREEN URINE NEGATIVE (NEGATIVE); BENZODIAZEPINES SCREEN URINE NEGATIVE (NEGATIVE); CANNABINOID SCREEN, URINE NEGATIVE (NEGATIVE); COCAINE SCREEN URINE NEGATIVE (NEGATIVE); METHADONE STAT NEGATIVE (NEGATIVE); METHAMPHETAMINE SCREEN URINE S POSITIVE (NEGATIVE); OPIATE SCREEN URINE NEGATIVE (NEGATIVE); OXYCODONE STAT NEGATIVE (NEGATIVE); PROPOXYPHENE STAT NEGATIVE (NEGATIVE); TRICYCLIC ANTIDEPRESSANTS SCRE NEGATIVE (NEGATIVE)
[2020-08-01 14:20] LABS: BACTERIA,URINE MODERATE /HPF; SQUAMOUS EPITHELIAL CELL,UR 25-50 /HPF; WBC,URINE 50-100 /HPF
[2020-08-01 14:21] LABS: AMORPHOUS SEDIMENT,UR LARGE AMOR URATES /LPF
[2020-08-01 14:22] LABS: TRICHOMONAS,URINE FEW /HPF
[2020-08-01] MEDS ORDERED: AZITHROMYCIN 250 MG TAB (ZITHROMAX) PO ONE (14:45)
[2020-08-01] MEDS ORDERED: metroNIDAZOLE 500 MG (FLAGYL) TAB PO ONE (14:45)
[2020-08-01] MEDS ORDERED: cefTRIAXone FOR IV USE 1,000 MG in WATER (STERILE) FOR INJECTION 10 ML IV ONE (14:45)
[2020-08-01] MEDS ORDERED: CEPH-507 PO (14:59)
--- NOTE | 2020-08-01 15:15 | NUR ---
C-COLLAR REMOVED BY Sophia DICKEY
[2020-08-01] MEDS ORDERED: ONDANSETRON 4 MG/2 ML (SDV) Z0FRAN ONE (15:33)
[2020-08-01 16:17] VITALS: BP 139/100
== END 2020-08-01 16:18 | disposition home or self-care (01) ==
LOC: EDUNIT# 12:51 → ER 12:55
DX: F41.9 Anxiety disorder, unspecified (principal); T39.311A Poisoning by propionic acid derivatives, accidental (unintentional), initial encounter; F15.10 Other stimulant abuse, uncomplicated; A59.9 Trichomoniasis, unspecified; N39.0 Urinary tract infection, site not specified; F17.210 Nicotine dependence, cigarettes, uncomplicated; F17.290 Nicotine dependence, other tobacco product, uncomplicated; Z88.5 Allergy status to narcotic agent; Z88.8 Allergy status to other drugs, medicaments and biological substances
CPT/HCPCS: 80053; 80306; 81000; 84443; 84703; 85025; 87088; 93041; 99284; G0480 ×3; 36415; 80320; 80329

== ENCOUNTER 2021-07-27 15:34 | Emergency (ER) | payer SELFPAY ==
[~2021-07-27] VITALS: Ht 157.5 cm; Wt 92.1 kg
[~2021-07-27 15:34] MED LIST changes: -AMIT10TA6 PO; +AMT10T PO; -DOXY100C2 PO; +DOXY100C5 PO; +QUET50TA23; -QUET50TA55; -SULF1TAB35 PO; +SULF1TAB38 PO
--- NOTE | 2021-07-27 15:49 | ED Abdominal Pain ---
General Chief Complaint: Abdominal/GI Problems Stated Complaint: R SIDE ABD PAIN Nursing Triage Note: PT AMB TO [facility] 5 WITH COMPLAINT OF RLQ THAT STARTED LAST NIGHT. STATES HAS HX OF OVARIAN CYST. History of Present Illness Date Seen by Provider: Jul 27, 2021 Time Seen by Provider: 15:38 Initial Comments 21-year-old female presents for right lower quadrant abdominal pain. She states is been present since yesterday afternoon. She tried Tylenol yesterday with no relief in her symptoms. She does have a history of ovarian cyst in the past. Her LMP was July 10. Mild nausea, no vomiting. Last BM this am. 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 Timing/Duration: 24 Hours Severity/Quality: Moderate Location: RLQ Radiation: Flank (right ) Activities at Onset: None Modifying Factors: Improves With Lying down, Improves With Resting Associated Symptoms: Back Pain; No Fever/Chills, No Headache, No Heartburn; Nausea/Vomiting; No Shortness of Air, No Swelling/Mass in Abdomen Allergies and Home Medications Allergies Coded Allergies: codeine (Verified Allergy, Mild, 12/23/13) guaifenesin (Verified Allergy, Mild, 12/23/13) hydrocodone (Unverified Allergy, Unknown, 05/15/14) Patient Home Medication List Home Medication List Reviewed: Yes Amitriptyline HCl (Amitriptyline HCl) 10 Mg Tablet, 10 MG PO, (Reported) Entered as Reported by: GEO MOORE on 05/30/181823 Cephalexin (Cephalexin) 500 Mg Tablet, 500 MG PO BID Prescribed by: CESAR SHEARER on 02/13/18 0618 Cephalexin (Keflex) 500 Mg Capsule, 500 MG PO TID Prescribed by: ADRIANNE ADKINS on 08/01/20 1459 Escitalopram Oxalate (Lexapro) 5 Mg Tablet, 5 MG PO, (Reported) Entered as Reported by: GEO MOORE on 05/30/18 182 Nitrofurantoin Macrocrystal (Nitrofurantoin) 100 Mg Capsule, 100 MG PO BID Prescribed by: ANEESH DAVIS on 07/27/21 1651 Ondansetron (Zofran Odt) 4 Mg Tab.rapdis, 4 MG SL Q4H PRN for NAUSEA/VOMITING- 1ST LINE Prescribed by: EM HOLLINS on 05/30/18 1854 Ondansetron (Ondansetron Odt) 4 Mg Tab.rapdis, 4 MG PO Q6H PRN for NAUSEA/VOMITING Prescribed by: ANEESH DAVIS on 07/27/21 165 Sulfamethoxazole/Trimethoprim (Bactrim Ds Tablet) 1 Each Tablet, 1 EACH PO BID Prescribed by: EM HOLLINS on 05/30/181853 Review of Systems Review of Systems Constitutional: no symptoms reported, see HPI Gastrointestinal: See HPI, Abdominal Pain; Denies Blood Streaked Stools, Denies Constipated, Denies Diarrhea; Nausea; Denies Poor Appetite, Denies Poor Fluid Intake, Denies Rectal Bleeding, Denies Vomiting Genitourinary: No Symptoms Reported, See HPI All Other Systems Reviewed Negative Unless Noted: Yes Past Dqaeaxe-Gghgqa-Jqmjur Hx Patient Social History Tobacco Use?: Yes Tobacco type used: Cigarettes Smoking Status: Current Everyday Smoker Use of E-Cig and/or Vaping dev: No Substance use?: No Alcohol Use?: No Pt feels they are or have been: No Immunizations Up To Date Tetanus Booster (TDap): Unknown PED Vaccines UTD: Yes First/Initial COVID19 Vaccinat: SUMMER 2020 Second COVID19 Vaccination Carlos: SUMMER 2020 Seasonal Allergies Seasonal Allergies: No Past Medical History Surgeries: Yes Adenoidectomy, Tonsillectomy Respiratory: No Asthma Cardiac: No Neurological: Yes Headaches /Migraines, Seizure Disorder : No Last Menstrual Period: Jul 10, 2021 Hx : 1 Hx Para: 0 Hx Total # of Abortions (Sp): 1 Reproductive Disorders: Yes Female Reproductive Disorders: Polycystic Ovarian Dis Sexually Transmitted Disease: No Genitourinary: No Gastrointestinal: No Musculoskeletal: No Endocrine: No HEENT: No Cancer: No Psychosocial: Yes Anxiety, PTSD Integumentary: No Blood Disorders: No Family Medical History Reviewed and Corrections made No Pertinent Family Hx, Heart Disease, Cancer, Stroke Physical Exam Vital Signs Vital Signs - First Documented 07/27/21 15:39 Temp 36.6 Pulse 80 Resp 22 B/P (MAP) 123/93 (103) Pulse Ox 99 O2 Delivery Room Air Capillary Refill : Less Than 3 Seconds Height/Weight/BMI Height: 5'2.00" Weight: 185lbs. 4oz. 83.787779el; 37.00 BMI Method:Stated General Appearance: WD/WN, no apparent distress, obese Neck: non-tender, full range of motion, supple, normal inspection Respiratory: chest non-tender, lungs clear, normal breath sounds, no respiratory distress, no accessory muscle use Cardiovascular: normal peripheral pulses, regular rate, rhythm Gastrointestinal: normal bowel sounds, soft, distended; No guarding; rebound, tenderness; No mass; other (Neg Park sign. ) Back: normal inspection, no vertebral tenderness, CVA tenderness (R); No CVA tenderness (L) Neurologic/Psychiatric: no motor/sensory deficits, alert, normal mood/affect, oriented x 3 Skin: normal color, warm/dry Progress/Results/Core Measures Results/Orders Lab Results Laboratory Tests Test 07/27/21 15:47 07/27/21 15:56 Range/Units Urine Color YELLOW Urine Clarity SL CLOUDY Urine pH 7.0 5-9 Urine Specific [place] 1.025 H 1.016-1.022 Urine Protein 2+ H NEGATIVE Urine Glucose (UA) NEGATIVE NEGATIVE Urine Ketones NEGATIVE NEGATIVE Urine Nitrite POSITIVE H NEGATIVE Urine Bilirubin NEGATIVE NEGATIVE Urine Urobilinogen 0.2 < = 1.0 MG/DL Urine Leukocyte Esterase 1+ H NEGATIVE Urine RBC (Auto) 3+ H NEGATIVE Urine RBC 25-50 H /HPF Urine WBC 5-10 H /HPF Urine Squamous Epithelial Cells 2-5 /HPF Urine Crystals NONE /LPF Urine Bacteria MODERATE H /HPF Urine Casts NONE /LPF Urine Mucus NEGATIVE /LPF Urine Culture Indicated YES Urine Opiates Screen NEGATIVE NEGATIVE Urine Oxycodone Screen NEGATIVE NEGATIVE Urine Methadone Screen NEGATIVE NEGATIVE Urine Propoxyphene Screen NEGATIVE NEGATIVE Urine Barbiturates Screen NEGATIVE NEGATIVE Ur Tricyclic Antidepressants Screen NEGATIVE NEGATIVE Urine Phencyclidine Screen NEGATIVE NEGATIVE Urine Amphetamines Screen NEGATIVE NEGATIVE Urine Methamphetamines Screen NEGATIVE NEGATIVE Urine Benzodiazepines Screen NEGATIVE NEGATIVE Urine Cocaine Screen NEGATIVE NEGATIVE Urine Cannabinoids Screen NEGATIVE NEGATIVE White Blood Count 12.6 H 4.3-11.0 10^3/uL Red Blood Count 4.80 3.80-5.11 10^6/uL Hemoglobin 14.2 11.5-16.0 g/dL Hematocrit 43 35-52 % Mean Corpuscular Volume 89 80-99 fL Mean Corpuscular Hemoglobin 30 25-34 pg Mean Corpuscular Hemoglobin Concent 33 32-36 g/dL Red Cell Distribution Width 12.4 10.0-14.5 % Platelet Count 370 130-400 10^3/uL Mean Platelet Volume 10.6 9.0-12.2 fL Immature Granulocyte % (Auto) 0 % Neutrophils (%) (Auto) 68 42-75 % Lymphocytes (%) (Auto) 19 12-44 % Monocytes (%) (Auto) 11 0-12 % Eosinophils (%) (Auto) 1 0-10 % Basophils (%) (Auto) 0 0-10 % Neutrophils # (Auto) 8.6 H 1.8-7.8 X 10^3 Lymphocytes # (Auto) 2.4 1.0-4.0 X 10^3 Monocytes # (Auto) 1.3 H 0.0-1.0 X 10^3 Eosinophils # (Auto) 0.2 0.0-0.3 10^3/uL Basophils # (Auto) 0.1 0.0-0.1 10^3/uL Immature Granulocyte # (Auto) 0.0 0.0-0.1 10^3/uL Sodium Level 139 135-145 MMOL/L Potassium Level 4.5 3.6-5.0 MMOL/L Chloride Level 106 98-107 MMOL/L Carbon Dioxide Level 22 21-32 MMOL/L Anion Gap 11 5-14 MMOL/L Blood Urea Nitrogen 11 7-18 MG/DL Creatinine 0.82 0.60-1.30 MG/DL Estimat Glomerular Filtration Rate 86 BUN/Creatinine Ratio 13 Glucose Level 99 70-105 MG/DL Calcium Level 9.6 8.5-10.1 MG/DL Corrected Calcium 9.3 8.5-10.1 MG/DL Total Bilirubin 0.4 0.1-1.0 MG/DL Aspartate Amino Transf (AST/SGOT) 18 5-34 U/L Alanine Aminotransferase (ALT/SGPT) 15 0-55 U/L Alkaline Phosphatase 33 L 40-136 U/L Total Protein 7.9 6.4-8.2 GM/DL Albumin 4.4 3.2-4.5 GM/DL My Orders Orders - ANEESH DAVIS Ua Culture If Indicated (07/27/21 15:36) Urine Bedside (07/27/21 15:36) Cbc With Automated Diff (07/27/21 15:47) Comprehensive Metabolic Panel (07/27/21 15:47) Ct Abd/Pelv W (Appendicitis) (07/27/21 15:49) Drug Screen Stat (Urine) (07/27/21 15:49) Iohexol Injection (Omnipaque 350 Mg/Ml 1 (07/27/21 16:00) Received Contrast (Hold Metformin- Contr (07/27/21 16:00) Ns (Ivpb) (Sodium Chloride 0.9% Ivpb Bag (07/27/21 16:00) Urine Culture (07/27/21 15:47) Ketorolac Injection (Toradol Injection) (07/27/21 16:09) Ed Iv/Invasive Line Start (07/27/21 16:09) Ns Iv 1000 Ml (Sodium Chloride 0.9%) (07/27/21 16:15) Nitrofurantoin Capsule,Macro (Macrobid C (07/27/21 16:48) Medications Given in ED Current Medications Medications Dose Ordered Sig/Dashawn Route Start Time Stop Time Status Last Admin Dose Admin Iohexol 100 ml ONCE ONCE IV 07/27/21 16:00 07/27/21 16:01 DC 07/27/21 16:25 100 ML Sodium Chloride 100 ml ONCE ONCE IV 07/27/21 16:00 07/27/21 16:01 DC 07/27/21 16:26 80 ML Vital Signs/I&O 07/27/21 07/27/21 15:39 17:19 Temp 36.6 Pulse 80 81 Resp 22 16 B/P (MAP) 123/93 (103) 135/88 Pulse Ox 99 97 O2 Delivery Room Air Room Air Blood Pressure Mean: 103 Progress Progress Note : Time: 15:38 Progress Note Patient seen and evaluated, will obtain labs and CT of the abdomen. 1640 CT and lab results discussed with the patient. She reports resolution of pain after receiving the Toradol. Discharge instructions and return precautions reviewed with her. Diagnostic Imaging Diagonstic Imaging: CT Plain Films/CT/US/NM/MRI: abdomen, pelvis Comments NAME: KWAKUJORGEJOSE ALBERTO M [facility] REC#: [id number] PT STATUS: REG ER : 2000 PHYSICIAN: ANEESH DAVIS ADMIT DATE: 07/27/21/ER Draft Date of Exam:07/27/21 CT ABD/PELV W (APPENDICITIS) PROCEDURE: CT abdomen and pelvis with contrast, rule out appendicitis. TECHNIQUE: Multiple contiguous axial images were obtained through the abdomen and pelvis after the administration of intravenous contrast. All CT scans use one or more of the following dose optimizing techniques: automated exposure control, MA and/or KvP adjustment based on patient size and exam type or iterative reconstruction. INDICATION: Right lower quadrant abdominal pain. COMPARISON: 05/07/2015 FINDINGS: Included portions of the lung bases show punctate subpleural micronodule within the posterolateral margins of the left lower lobe (image 2, series 2). This measures approximately 2 mm and is stable when compared to 05/07/2015. CT ABDOMEN: Normal appendix is identified. Small bowel loops are nondistended. There is very subtle asymmetric stranding of the perirenal and peripelvic fat on the right. No renal or ureteral calculi are seen on either side. Additionally, there is no hydronephrosis or other evidence of obstruction. No renal masses are seen. Left kidney has a normal CT appearance. Adrenal glands, spleen, pancreas, and liver have a normal CT appearance. There is no loculated fluid collection, free fluid or free air within the abdomen. No abnormal mesenteric or retroperitoneal adenopathy is seen. Osseous structures show no acute abnormalities CT PELVIS: Urinary bladder is unopacified. No calculi are seen within the urinary bladder. Small amount of free fluid is present within the cul-de-sac. There is no loculated fluid collection or free air. No abnormal adenopathy is seen. Osseous structures show no acute abnormalities. IMPRESSION: 1. Normal appendix. 2. Subtle asymmetric stranding of the perirenal and peripelvic fat on the right. No renal or ureteral calculi are identified on either side. Additionally, there is no hydronephrosis or other evidence of obstruction. Findings may be on the basis of urinary tract infection. Clinical correlation is advised. 3. Small amount of free fluid within the pelvis, which may be physiologic or potentially reactive and related to the above. Dictated on workstation # [id number] Dict: 07/27/21 1628 Trans: 07/27/21 1636 [facility] [id number] Interpreted by: ASHLEY GONZALEZ MD Electronically signed by: Reviewed: Reviewed by Me Departure Impression Primary Impression: Abdominal pain Qualified Codes: R10.31 - Right lower quadrant pain Additional Impressions: Nausea alone UTI (urinary tract infection) Qualified Codes: N30.01 - Acute cystitis with hematuria Disposition: HOME, SELF-CARE Condition: Improved Departure-Patient Inst. Decision time for Depature: 16:35 Referrals: [facility] (PCP/Family) Primary Care Physician Patient Instructions: Urinary Tract Infection, Adult (DC) Add. Discharge Instructions: Increase water intake, 16 ounces every 2 hours while awake. Take antibiotics as prescribed. Eat 1 cup of fresh blueberries or drink 1 cup of cranberry juice daily. Follow-up with your primary care provider or [facility] walk in, if symptoms are not improving or worsen. You may alternate between Tylenol 650 mg and ibuprofen 600 mg every 4 hours for pain or fever. Return to the emergency department for new, urgent healthcare problems. All discharge instructions reviewed with patient and/or family. Voiced understanding. Scripts Ondansetron (Ondansetron Odt) 4 Mg Tab.rapdis 4 MG PO Q6H PRN for NAUSEA/VOMITING, #8 TAB 0 Refills Prov: ANEESH DAVIS 07/27/21 Nitrofurantoin Macrocrystal (Nitrofurantoin) 100 Mg Capsule 100 MG PO BID, #10 CAP 0 Refills Prov: ANEESH DAVIS 07/27/21 ANEESH DAVIS Jul 27, 2021 15:49
[2021-07-27] MEDS ORDERED: HOLD METFORMIN - RECEIVED CONTRAST 20 ML VIAL IV SCH (16:00)
[2021-07-27] MEDS ORDERED: IOHEXOL 350 MG/ML 100 ML (OMNIPAQUE 350) VIAL IV ONE (16:00)
[2021-07-27] MEDS ORDERED: NS 100 ML (IVPB) BAG IV ONE (16:00)
[2021-07-27 16:03] LABS: BASOPHILS # (AUTO) 0.1 10^3/uL (0.0-0.1); BASOPHILS % (AUTO) 0 % (0-10); EOSINOPHILS # (AUTO) 0.2 10^3/uL (0.0-0.3); EOSINOPHILS % (AUTO) 1 % (0-10); HEMATOCRIT 43 % (35-52); HEMOGLOBIN 14.2 g/dL (11.5-16.0); LYMPHOCYTES # (AUTO) 2.4 X 10^3 (1.0-4.0); LYMPHOCYTES % (AUTO) 19 % (12-44); MEAN CORPUSCULAR HEMOGLOBIN 30 pg (25-34); MEAN CORPUSCULAR HGB CONC 33 g/dL (32-36); MEAN CORPUSCULAR VOLUME 89 fL (80-99); MEAN PLATELET VOLUME 10.6 fL (9.0-12.2); MONOCYTES # (AUTO) 1.3 X 10^3 (0.0-1.0); MONOCYTES % (AUTO) 11 % (0-12); NEUTROPHILS # (AUTO) 8.6 X 10^3 (1.8-7.8); NEUTROPHILS % (AUTO) 68 % (42-75); PLATELET COUNT 370 10^3/uL (130-400); WHITE BLOOD COUNT 12.6 10^3/uL (4.3-11.0)
[2021-07-27 16:04] LABS: BILIRUBIN,URINE NEGATIVE (NEGATIVE); CLARITY,URINE SL CLOUDY; COLOR,URINE YELLOW; GLUCOSE, URINE (UA) NEGATIVE (NEGATIVE); KETONES,URINE NEGATIVE (NEGATIVE); LEUKOCYTE ESTERASE ,URINE 1+ (NEGATIVE); NITRITE,URINE POSITIVE (NEGATIVE); PROTEIN,URINE 2+ (NEGATIVE)
[2021-07-27 16:08] LABS: BACTERIA,URINE MODERATE /HPF; RBC,URINE 25-50 /HPF
[2021-07-27] MEDS ORDERED: KETOROLAC 30 MG/ML VIAL IVP STA (16:09)
[2021-07-27 16:11] LABS: AMPHETAMINE SCREEN, URINE NEGATIVE (NEGATIVE); BARBITURATE SCREEN URINE NEGATIVE (NEGATIVE); BENZODIAZEPINES SCREEN URINE NEGATIVE (NEGATIVE); CANNABINOID SCREEN, URINE NEGATIVE (NEGATIVE); COCAINE SCREEN URINE NEGATIVE (NEGATIVE); METHADONE STAT NEGATIVE (NEGATIVE); METHAMPHETAMINE SCREEN URINE S NEGATIVE (NEGATIVE); OPIATE SCREEN URINE NEGATIVE (NEGATIVE); OXYCODONE STAT NEGATIVE (NEGATIVE); PROPOXYPHENE STAT NEGATIVE (NEGATIVE); TRICYCLIC ANTIDEPRESSANTS SCRE NEGATIVE (NEGATIVE)
[2021-07-27] MEDS ORDERED: NS IV 1000 ML 1,000 ML IV SCH (16:15)
[2021-07-27 16:16] LABS: ALBUMIN 4.4 GM/DL (3.2-4.5); POTASSIUM 4.5 MMOL/L (3.6-5.0)
[2021-07-27 16:17] LABS: CALCIUM 9.6 MG/DL (8.5-10.1)
[2021-07-27 16:19] LABS: TOTAL PROTEIN 7.9 GM/DL (6.4-8.2)
[2021-07-27 16:20] LABS: BILIRUBIN,TOTAL 0.4 MG/DL (0.1-1.0)
[2021-07-27 16:22] LABS: CREATININE SERUM 0.82 MG/DL (0.60-1.30)
--- NOTE | 2021-07-27 16:36 | Diagnostic Imaging Report ---
PROCEDURE: CT abdomen and pelvis with contrast, rule out appendicitis. TECHNIQUE: Multiple contiguous axial images were obtained through the abdomen and pelvis after the administration of intravenous contrast. All CT scans use one or more of the following dose optimizing techniques: automated exposure control, MA and/or KvP adjustment based on patient size and exam type or iterative reconstruction. INDICATION: Right lower quadrant abdominal pain. COMPARISON: 05/07/2015 FINDINGS: Included portions of the lung bases show punctate subpleural micronodule within the posterolateral margins of the left lower lobe (image 2, series 2). This measures approximately 2 mm and is stable when compared to 05/07/2015. CT ABDOMEN: Normal appendix is identified. Small bowel loops are nondistended. There is very subtle asymmetric stranding of the perirenal and peripelvic fat on the right. No renal or ureteral calculi are seen on either side. Additionally, there is no hydronephrosis or other evidence of obstruction. No renal masses are seen. Left kidney has a normal CT appearance. Adrenal glands, spleen, pancreas, and liver have a normal CT appearance. There is no loculated fluid collection, free fluid or free air within the abdomen. No abnormal mesenteric or retroperitoneal adenopathy is seen. Osseous structures show no acute abnormalities CT PELVIS: Urinary bladder is unopacified. No calculi are seen within the urinary bladder. Small amount of free fluid is present within the cul-de-sac. There is no loculated fluid collection or free air. No abnormal adenopathy is seen. Osseous structures show no acute abnormalities. IMPRESSION: 1. Normal appendix. 2. Subtle asymmetric stranding of the perirenal and peripelvic fat on the right. No renal or ureteral calculi are identified on either side. Additionally, there is no hydronephrosis or other evidence of obstruction. Findings may be on the basis of urinary tract infection. Clinical correlation is advised. 3. Small amount of free fluid within the pelvis, which may be physiologic or potentially reactive and related to the above. Dictated by: Dictated on workstation # [id number]
[2021-07-27] MEDS ORDERED: NITROFURANTOIN 100 MG (MACROBID) CAPSULE PO STA (16:48)
[2021-07-27] MEDS ORDERED: ONDA4TAB11 PO (16:51)
[2021-07-27] MEDS ORDERED: NITR100C PO (16:51)
[2021-07-27 17:19] VITALS: BP 135/88
== END 2021-07-27 17:19 | disposition home or self-care (01) ==
LOC: EDUNIT# 15:34 → ER 15:35
DX: N39.0 Urinary tract infection, site not specified (principal); R11.0 Nausea; J45.909 Unspecified asthma, uncomplicated; F41.9 Anxiety disorder, unspecified; E66.9 Obesity, unspecified; F17.210 Nicotine dependence, cigarettes, uncomplicated; Z68.37 Body mass index [BMI] 37.0-37.9, adult; Z79.899 Other long term (current) drug therapy
CPT/HCPCS: 36415; 74177; 80053; 80306; 81000; 84703; 85025; 87077; 87088; 87186

== ENCOUNTER 2021-09-22 10:41 | Emergency (ER) | payer SELFPAY ==
[~2021-09-22 10:41] MED LIST changes: -FLUO20CA46; +FLUO20CA48; +NITR100C PO; +ONDA4TAB11 PO
[2021-09-22] MEDS ORDERED: DOXY100T2 PO (11:05)
--- NOTE | 2021-09-22 11:06 | ED Integumentary General ---
General Chief Complaint: Skin/Wound Problems Stated Complaint: ABCESS ON FACE Source: patient Exam Limitations: no limitations History of Present Illness Date Seen by Provider: Sep 22, 2021 Time Seen by Provider: 11:02 Initial Comments to ER with an abscess to the left side of the face onset yesterday no known cause started as a small pimple. Timing/Duration: just prior to arrival Severity: mild Location: face Possible Cause: no cause identified Associated Symptoms: denies symptoms Allergies and Home Medications Allergies Coded Allergies: codeine (Verified Allergy, Mild, 12/23/13) guaifenesin (Verified Allergy, Mild, 12/23/13) hydrocodone (Unverified Allergy, Unknown, 05/15/14) Patient Home Medication List Home Medication List Reviewed: Yes Amitriptyline HCl (Amitriptyline HCl) 10 Mg Tablet, 10 MG PO, (Reported) Entered as Reported by: GEO MOORE on 05/30/181823 Cephalexin (Cephalexin) 500 Mg Tablet, 500 MG PO BID Prescribed by: CESAR SHEARER on 02/13/18 0618 Cephalexin (Keflex) 500 Mg Capsule, 500 MG PO TID Prescribed by: ADRIANNE ADKINS on 08/01/20 145 Escitalopram Oxalate (Lexapro) 5 Mg Tablet, 5 MG PO, (Reported) Entered as Reported by: GEO MOORE on 05/30/181823 Nitrofurantoin Macrocrystal (Nitrofurantoin) 100 Mg Capsule, 100 MG PO BID Prescribed by: ANEESH DAVIS on 07/27/21 165 Ondansetron (Zofran Odt) 4 Mg Tab.rapdis, 4 MG SL Q4H PRN for NAUSEA/VOMITING- 1ST LINE Prescribed by: EM HOLLINS on 05/30/181853 Ondansetron (Ondansetron Odt) 4 Mg Tab.rapdis, 4 MG PO Q6H PRN for NAUSEA/VOMITING Prescribed by: ANEESH DAVIS on 07/27/21 165 Sulfamethoxazole/Trimethoprim (Bactrim Ds Tablet) 1 Each Tablet, 1 EACH PO BID Prescribed by: EM HOLLINS on 05/30/181853 Review of Systems Review of Systems Constitutional: see HPI EENTM: see HPI Respiratory: no symptoms reported Cardiovascular: no symptoms reported Genitourinary: no symptoms reported Musculoskeletal: no symptoms reported Skin: see HPI Psychiatric/Neurological: No Symptoms Reported Endocrine: No Symptoms Reported Hematologic/Lymphatic: No Symptoms Reported Past Ejclfol-Ivlmqj-Pultki Hx Immunizations Up To Date Tetanus Booster (TDap): Unknown PED Vaccines UTD: Yes First/Initial COVID19 Vaccinat: SUMMER 2020 Second COVID19 Vaccination Carlos: SUMMER 2020 Seasonal Allergies Seasonal Allergies: No Past Medical History Surgeries: Yes Adenoidectomy, Tonsillectomy Respiratory: No Asthma Cardiac: No Neurological: Yes Headaches /Migraines, Seizure Disorder Reproductive Disorders: Yes Female Reproductive Disorders: Polycystic Ovarian Dis Sexually Transmitted Disease: No Genitourinary: No Gastrointestinal: No Musculoskeletal: No Endocrine: No HEENT: No Cancer: No Psychosocial: Yes Anxiety, PTSD Integumentary: No Blood Disorders: No Family Medical History No Pertinent Family Hx, Heart Disease, Cancer, Stroke Physical Exam Vital Signs Capillary Refill : General Appearance: WD/WN, no apparent distress HEENT: PERRL/EOMI, normal ENT inspection, other (Half of a dime sized pustule to the left cheek without cellulitis or induration. 18-gauge needle was used to unroofed this culture was collected covered with gauze and will prescribe doxycycline.) Neck: non-tender, full range of motion Respiratory: no respiratory distress, no accessory muscle use Neurologic/Psychiatric: alert, normal mood/affect, oriented x 3 Skin: normal color, warm/dry Skin Problem Location: face Skin Problem Character: abscess Progress/Results/Core Measures Results/Orders My Orders Orders - AFUA GARCIA APRN Wound Culture (09/22/21 11:01) Departure Impression Primary Impression: Facial abscess Disposition: HOME, SELF-CARE Condition: Stable Departure-Patient Inst. Decision time for Depature: 11:04 Referrals: [facility] (PCP/Family) Primary Care Physician Patient Instructions: Abscess Incision and Drainage (DC) Add. Discharge Instructions: 1. Warm compresses to the area. Take the antibiotic as directed. Return to ER if any worsening. Follow-up with your doctor later this week for recheck. All discharge instructions reviewed with patient and/or family. Voiced understanding. Scripts Doxycycline Hyclate (Doxycycline Hyclate) 100 Mg Tablet 100 MG PO BID, #14 TAB 0 Refills Prov: AFUA GARCIA APRN 09/22/21 AFUA GARCIA APRN Sep 22, 2021 11:06
[2021-09-22 11:15] VITALS: BP 122/89
== END 2021-09-22 11:15 | disposition home or self-care (01) ==
LOC: EDUNIT# 10:41 → ER 10:44
DX: L02.01 Cutaneous abscess of face (principal)
CPT/HCPCS: 87070; 87077; 87186; 87205; 99282

== ENCOUNTER 2021-12-06 19:04 | Emergency (ER) | payer SELFPAY ==
[~2021-12-06] VITALS: Ht 157 cm; Wt 84.0 kg
[~2021-12-06 19:04] MED LIST changes: +DOXY100T2 PO
[2021-12-06] MEDS ORDERED: NS IV 1000 ML 1,000 ML IV SCH ×2 (20:15→20:30)
--- NOTE | 2021-12-06 20:28 | ED Cough/URI ---
General Chief Complaint: Fever-Adult/Adol Stated Complaint: FEVER/CHEST PAIN Nursing Triage Note: Patient presented to the ER tonight with complaints of fever and vomiting x 3 days, states pain in her chest when she breathes. Source: patient Exam Limitations: no limitations History of Present Illness Date Seen by Provider: Dec 06, 2021 Time Seen by Provider: 19:59 Initial Comments The patient presents to the ER by private conveyance. She complains of about 3 weeks of malaise and a cough. She is a smoker. She says in the last 3 days however she started to have fevers and cannot smoke anything and is having a productive cough now. She has not been tested anywhere. She does not have any significant medical history other than smoking. She did take a subtherapeutic dose of Tylenol or Motrin before she came about 4 hours ago. She is not having any diarrhea dysuria constipation abdominal pain. She states that her chest just hurts when she coughs or takes a deep breath in. Allergies and Home Medications Allergies Coded Allergies: codeine (Verified Allergy, Mild, 12/23/13) guaifenesin (Verified Allergy, Mild, 12/23/13) hydrocodone (Unverified Allergy, Unknown, 05/15/14) Patient Home Medication List Home Medication List Reviewed: Yes Amitriptyline HCl (Amitriptyline HCl) 10 Mg Tablet, 10 MG PO, (Reported) Entered as Reported by: GEO MOORE on 05/30/181823 Baloxavir Marboxil (Xofluza) 80 Mg Tablet, 80 MG PO ONCE Prescribed by: FELI RAMOS on 12/06/212141 Cephalexin (Cephalexin) 500 Mg Tablet, 500 MG PO BID Prescribed by: CESAR SHEARER on 02/13/18 0618 Cephalexin (Keflex) 500 Mg Capsule, 500 MG PO TID Prescribed by: ADRIANNE ADKINS on 08/01/20 1459 Doxycycline Hyclate (Doxycycline Hyclate) 100 Mg Tablet, 100 MG PO BID Prescribed by: AFUA GARCIA on 09/22/21 1105 Escitalopram Oxalate (Lexapro) 5 Mg Tablet, 5 MG PO, (Reported) Entered as Reported by: GEO MOORE on 05/30/18 182 Nitrofurantoin Macrocrystal (Nitrofurantoin) 100 Mg Capsule, 100 MG PO BID Prescribed by: ANEESH DAVIS on 07/27/211650 Ondansetron (Zofran Odt) 4 Mg Tab.rapdis, 4 MG SL Q4H PRN for NAUSEA/VOMITING- 1ST LINE Prescribed by: EM HOLLINS on 05/30/181853 Ondansetron (Ondansetron Odt) 4 Mg Tab.rapdis, 4 MG PO Q6H PRN for NAUSEA/VOMITING Prescribed by: ANEESH DAVIS on 07/27/211650 Ondansetron (Ondansetron Odt) 4 Mg Tab.rapdis, 4 MG PO Q6H PRN for NAUSEA/VOMITING Prescribed by: FELI RAMOS on 12/06/212141 Sulfamethoxazole/Trimethoprim (Bactrim Ds Tablet) 1 Each Tablet, 1 EACH PO BID Prescribed by: EM HOLLINS on 05/30/181853 Review of Systems Review of Systems Constitutional: No chills, No diaphoresis EENTM: No ear discharge, No ear pain Respiratory: cough, phlegm, short of breath; No wheezing Cardiovascular: No edema, No Hx of Intervention, No palpitations Gastrointestinal: No abdominal pain, No constipation, No diarrhea Genitourinary: No discharge, No dysuria Musculoskeletal: No back pain, No joint pain All Other Systems Reviewed Negative Unless Noted: Yes Past Lwlunvd-Vjniql-Hpujfx Hx Patient Social History Tobacco Use?: Yes Tobacco type used: Cigarettes Substance use?: Yes Substance type: Methamphetamine Additional substance use comme: 1 month clean Alcohol Use?: No Immunizations Up To Date Tetanus Booster (TDap): Unknown PED Vaccines UTD: Yes First/Initial COVID19 Vaccinat: MAY Second COVID19 Vaccination Carlos: MAY Third COVID19 Vaccination Date: MAY Seasonal Allergies Seasonal Allergies: No Past Medical History Surgery/Hospitalization HX: tonsillectomy Surgeries: Yes Adenoidectomy, Tonsillectomy Respiratory: No Asthma Cardiac: No Neurological: Yes Headaches /Migraines, Seizure Disorder Reproductive Disorders: Yes Female Reproductive Disorders: Polycystic Ovarian Dis Sexually Transmitted Disease: No Genitourinary: No Gastrointestinal: No Musculoskeletal: No Endocrine: No HEENT: No Cancer: No Psychosocial: Yes Anxiety, PTSD Integumentary: No Blood Disorders: No Family Medical History No Pertinent Family Hx, Heart Disease, Cancer, Stroke Physical Exam Vital Signs - First Documented 12/06/21 19:51 Temp 39.4 Pulse 114 Resp 20 B/P (MAP) 156/101 (119) Pulse Ox 99 O2 Delivery Room Air Capillary Refill : Less Than 3 Seconds Height: 5'2.00" Weight: 185lbs. 4oz. 83.086899va; 34.00 BMI Method:Stated General Appearance: WD/WN, mild distress Eyes: Bilateral Eye Normal Inspection, Bilateral Eye PERRL, Bilateral Eye EOMI HEENT: PERRL/EOMI, normal ENT inspection, TMs normal, pharynx normal Neck: non-tender, full range of motion, supple, normal inspection Respiratory: lungs clear, normal breath sounds, no respiratory distress, no accessory muscle use (100% on room air nonlabored breathing. Speaking in full sentences.) Cardiovascular: normal peripheral pulses, regular rate, rhythm Gastrointestinal: normal bowel sounds, non tender, soft Neurologic/Psychiatric: alert, normal mood/affect, oriented x 3 Skin: normal color, warm/dry Progress/Results/Core Measures Suspected Sepsis SIRS Temperature: Pulse: 114 Respiratory Rate: 20 Laboratory Tests 12/06/21 20:10: White Blood Count 8.6 Blood Pressure 156 /101 Mean: 119 Laboratory Tests 12/06/21 20:10: Creatinine 0.86, Platelet Count 317, Total Bilirubin 0.2 Results/Orders Lab Results Laboratory Tests Test 12/06/21 19:25 12/06/21 20:10 Range/Units Influenza Type A (RT-PCR) Detected H Not Detecte Influenza Type B (RT-PCR) Not Detected Not Detecte SARS-CoV-2 RNA (RT-PCR) Not Detected Not Detecte White Blood Count 8.6 4.3-11.0 10^3/uL Red Blood Count 4.55 3.80-5.11 10^6/uL Hemoglobin 12.9 11.5-16.0 g/dL Hematocrit 40 35-52 % Mean Corpuscular Volume 87 80-99 fL Mean Corpuscular Hemoglobin 28 25-34 pg Mean Corpuscular Hemoglobin Concent 33 32-36 g/dL Red Cell Distribution Width 13.8 10.0-14.5 % Platelet Count 317 130-400 10^3/uL Mean Platelet Volume 11.0 9.0-12.2 fL Immature Granulocyte % (Auto) 0 % Neutrophils (%) (Auto) 75 42-75 % Lymphocytes (%) (Auto) 11 L 12-44 % Monocytes (%) (Auto) 14 H 0-12 % Eosinophils (%) (Auto) 0 0-10 % Basophils (%) (Auto) 0 0-10 % Neutrophils # (Auto) 6.4 1.8-7.8 10^3/uL Lymphocytes # (Auto) 0.9 L 1.0-4.0 10^3/uL Monocytes # (Auto) 1.2 H 0.0-1.0 10^3/uL Eosinophils # (Auto) 0.0 0.0-0.3 10^3/uL Basophils # (Auto) 0.0 0.0-0.1 10^3/uL Immature Granulocyte # (Auto) 0.0 0.0-0.1 10^3/uL Sodium Level 136 135-145 MMOL/L Potassium Level 4.0 3.6-5.0 MMOL/L Chloride Level 105 98-107 MMOL/L Carbon Dioxide Level 20 L 21-32 MMOL/L Anion Gap 11 5-14 MMOL/L Blood Urea Nitrogen 12 7-18 MG/DL Creatinine 0.86 0.60-1.30 MG/DL Estimat Glomerular Filtration Rate 97 BUN/Creatinine Ratio 14 Glucose Level 106 H 70-105 MG/DL Calcium Level 9.1 8.5-10.1 MG/DL Corrected Calcium 8.9 8.5-10.1 MG/DL Total Bilirubin 0.2 0.1-1.0 MG/DL Aspartate Amino Transf (AST/SGOT) 27 5-34 U/L Alanine Aminotransferase (ALT/SGPT) 20 0-55 U/L Alkaline Phosphatase 23 L 40-136 U/L Troponin I < 0.028 <0.028 NG/ML C-Reactive Protein High Sensitivity 3.39 H 0.00-0.50 MG/DL Total Protein 7.8 6.4-8.2 GM/DL Albumin 4.3 3.2-4.5 GM/DL My Orders Orders - FELI RAMOS 19 Inhouse Test (12/06/21 19:22) Influenza A And B By Pcr (12/06/21 19:22) Ed Iv/Invasive Line Start (12/06/21 20:13) Cbc With Automated Diff (12/06/21 20:13) Comprehensive Metabolic Panel (12/06/21 20:13) Hs C Reactive Protein (12/06/21 20:13) Ed Iv/Invasive Line Start (12/06/21 20:17) Ns Iv 1000 Ml (Sodium Chloride 0.9%) (12/06/21 20:30) Ketorolac Injection (Toradol Injection) (12/06/21 20:30) Ekg Tracing (12/06/21 20:28) Continuous Ekg Monitoring (12/06/21 20:28) Troponin I [place] (12/06/21 20:28) Medications Given in ED Current Medications Medications Dose Ordered Sig/Dashawn Route Start Time Stop Time Status Last Admin Dose Admin Ketorolac Tromethamine 30 mg ONCE ONCE IVP 12/06/21 20:30 12/06/21 20:31 DC 12/06/21 20:43 30 MG Vital Signs/I&O 12/06/21 12/06/21 12/06/21 19:51 21:54 21:55 Temp 39.4 Pulse 114 102 102 Resp 20 18 18 B/P (MAP) 156/101 (119) 137/80 137/80 Pulse Ox 99 98 98 O2 Delivery Room Air Room Air Room Air Capillary Refill : Less Than 3 Seconds Blood Pressure Mean: 119 Progress Note #1: Time: 20:28 Progress Note Viral bronchitis or pneumonia most likely. Will start with Covid and influenza swabs. Chest x-ray since her symptoms been going on for so long and some fluids and basic labs. Progress Note #2: Time: 21:36 Progress Note She has influenza. She is feeling marginally better after some fluids and Toradol. We are going to let her go home. ECG Initial ECG Impression Date: Dec 06, 2021 Initial ECG Impression Time: 20:29 Initial ECG Rate: 109 Initial ECG Rhythm: S.Tach Initial ECG Intervals: Normal Initial ECG Impression: Normal Comment Sinus tachycardia with no clinically relevant ST elevation or depression. Departure Impression Primary Impression: Influenza A Disposition: 01 HOME, SELF-CARE Condition: Stable Departure-Patient Inst. Decision time for Depature: 21:37 Referrals: NO,LOCAL PHYSICIAN (PCP/Family) Primary Care Physician Patient Instructions: Flu, Adult (DC) Add. Discharge Instructions: Wash your hands and use surface sanitizers at home to try and keep this from spreading to the rest your family. Tylenol and Motrin as necessary for headaches. Zofran 1 tablet every 6 hours as necessary for nausea. Xofluza 1 tablet take it tomorrow morning to try and help reduce the length of flu. Return to the ER for significantly worsening shortness of air or other worrisome symptoms. All discharge instructions reviewed with patient and/or family. Voiced understanding. Scripts Ondansetron (Ondansetron Odt) 4 Mg Tab.rapdis 4 MG PO Q6H PRN for NAUSEA/VOMITING, #12 TAB 0 Refills Prov: FELI RAMOS 12/06/21 Baloxavir Marboxil (Xofluza) 80 Mg Tablet 80 MG PO ONCE, #1 TAB 0 Refills Prov: FELI RAMOS 12/06/21 Work/School Note: Work Release Form Date Seen in the Emergency Department: Dec 06, 2021 Return to Work: Dec 14, 2021 Restrictions: Return-No Fever (24hrs) Other Restrictions Listed Below: Off isolation when 24h symptom free without meds to mask symptoms. FELI RAMOS Dec 06, 2021 20:28
[2021-12-06] MEDS ORDERED: KETOROLAC 30 MG/ML VIAL IVP ONE (20:30)
[2021-12-06 20:32] LABS: BASOPHILS % (AUTO) 0 % (0-10); EOSINOPHILS % (AUTO) 0 % (0-10); HEMATOCRIT 40 % (35-52); HEMOGLOBIN 12.9 g/dL (11.5-16.0); LYMPHOCYTES # (AUTO) 0.9 10^3/uL (1.0-4.0); LYMPHOCYTES % (AUTO) 11 % (12-44); MEAN CORPUSCULAR HEMOGLOBIN 28 pg (25-34); MEAN CORPUSCULAR HGB CONC 33 g/dL (32-36); MEAN CORPUSCULAR VOLUME 87 fL (80-99); MONOCYTES # (AUTO) 1.2 10^3/uL (0.0-1.0); MONOCYTES % (AUTO) 14 % (0-12); NEUTROPHILS # (AUTO) 6.4 10^3/uL (1.8-7.8); NEUTROPHILS % (AUTO) 75 % (42-75); PLATELET COUNT 317 10^3/uL (130-400); WHITE BLOOD COUNT 8.6 10^3/uL (4.3-11.0)
[2021-12-06 20:41] LABS: ALBUMIN 4.3 GM/DL (3.2-4.5); BILIRUBIN,TOTAL 0.2 MG/DL (0.1-1.0); CALCIUM 9.1 MG/DL (8.5-10.1); CREATININE SERUM 0.86 MG/DL (0.60-1.30); TOTAL PROTEIN 7.8 GM/DL (6.4-8.2)
[2021-12-06] MEDS ORDERED: ONDA4TAB11 PO (21:42)
[2021-12-06] MEDS ORDERED: BALO80TA PO (21:42)
[2021-12-06 21:54] VITALS: BP 137/80
== END 2021-12-06 21:55 | disposition home or self-care (01) ==
LOC: EDUNIT# 19:04 → ER 19:06
DX: J10.1 Influenza due to other identified influenza virus with other respiratory manifestations (principal); F17.290 Nicotine dependence, other tobacco product, uncomplicated; Z20.822 Contact with and (suspected) exposure to COVID-19
CPT/HCPCS: 36415; 80053; 84484; 85025; 86141; 87636; 93005

== ENCOUNTER 2022-03-15 22:34 | Emergency (ER) | payer SELFPAY ==
[~2022-03-15] VITALS: Ht 157 cm; Wt 102.0 kg
[~2022-03-15 22:34] MED LIST changes: +BALO80TA PO
[2022-03-15 22:43] VITALS: BP 150/109
[2022-03-15] MEDS ORDERED: methylPREDNISolone 125 MG (Solu-MEDROL) VIAL IV STA (22:53)
[2022-03-15] MEDS ORDERED: RT-ALBUTEROL/IPRATROPIUM 3 ML (DUONEB) VIAL INH ONE (23:00)
[2022-03-15 23:17] LABS: BASOPHILS # (AUTO) 0.1 10^3/uL (0.0-0.1); BASOPHILS % (AUTO) 0 % (0-10); EOSINOPHILS # (AUTO) 0.1 10^3/uL (0.0-0.3); EOSINOPHILS % (AUTO) 0 % (0-10); HEMATOCRIT 41 % (35-52); HEMOGLOBIN 14.5 g/dL (11.5-16.0); LYMPHOCYTES # (AUTO) 3.3 10^3/uL (1.0-4.0); LYMPHOCYTES % (AUTO) 21 % (12-44); MEAN CORPUSCULAR HEMOGLOBIN 29 pg (25-34); MEAN CORPUSCULAR HGB CONC 35 g/dL (32-36); MEAN CORPUSCULAR VOLUME 81 fL (80-99); MEAN PLATELET VOLUME 10.9 fL (9.0-12.2); MONOCYTES # (AUTO) 1.8 10^3/uL (0.0-1.0); MONOCYTES % (AUTO) 11 % (0-12); NEUTROPHILS # (AUTO) 10.4 10^3/uL (1.8-7.8); NEUTROPHILS % (AUTO) 67 % (42-75); PLATELET COUNT 518 10^3/uL (130-400); WHITE BLOOD COUNT 15.7 10^3/uL (4.3-11.0)
[2022-03-15 23:22] LABS: ALBUMIN 4.6 GM/DL (3.2-4.5); CHLORIDE 111 MMOL/L (98-107); POTASSIUM 3.4 MMOL/L (3.6-5.0); SODIUM 141 MMOL/L (135-145)
[2022-03-15 23:23] LABS: CALCIUM 9.9 MG/DL (8.5-10.1)
[2022-03-15 23:25] LABS: GLUCOSE 127 MG/DL (70-105); TOTAL PROTEIN 8.4 GM/DL (6.4-8.2)
[2022-03-15 23:26] LABS: BILIRUBIN,TOTAL 1.4 MG/DL (0.1-1.0); CARBON DIOXIDE 14 MMOL/L (21-32)
[2022-03-15 23:28] LABS: ALKALINE PHOSPHATASE 24 U/L (40-136); CREATININE SERUM 1.01 MG/DL (0.60-1.30); GFR ESTIMATED 80
[2022-03-15 23:29] LABS: BUN/CREATININE RATIO 16
[2022-03-15 23:31] LABS: ALANINE AMINOTRANSFERASE 24 U/L (0-55); MAGNESIUM 2.1 MG/DL (1.6-2.4)
[2022-03-15 23:52] LABS: ATYPICAL LYMPHOCYTES 3 %; BAND NEUTROPHILS 1 %; EOSINOPHILS % (MANUAL) 1 %; LYMPHOCYTES % (MANUAL) 18 %; MONOCYTES % (MANUAL) 11 %; NEUTROPHILS % (MANUAL) 66 %; RBC MORPH NORMAL
--- NOTE | 2022-03-15 23:53 | ED Respiratory ---
General Chief Complaint: Respiratory Problems Stated Complaint: SOA/COUGH ASTHMA Nursing Triage Note: Pt reports shortness of breath for the past week. She states she went to [facility] and was prescribed an inhaler, but could not afford to pick it up. She states SOA worsening over the past 2 days. Used entire rescue inhaler today without relief. Source: patient History of Present Illness Date Seen by Provider: Mar 15, 2022 Time Seen by Provider: 22:45 Initial Comments PT ARRIVES VIA POV FROM HOME WITH MOTHER C/O HAVING A NON-PRODUCTIVE COUGH AND SHORTNESS OF BREATH X 1 WEEK STATES SHORTNESS OF BREATH HAS GOTTEN WORSE OVER THE LAST 2 DAYS NO FEVER STATES SHE HAS ASTHMA AND USES PRO-AIR RESCUE INHALER PT CANNOT STATE HOW OFTEN SHE USES IT ON A REGULAR BASIS, BUT HAS BEEN USING IT MULTIPLE TIMES EVERY DAY FOR THE LAST WEEK STATES SHE OPENED UP A NEW PRO-AIR INHALER THIS MORNING AND HAS USED THE ENTIRE INHALER TODAY WITHOUT RELIEF. PT HAS NEVER USED A SPACER STATES SHE WENT TO [facility] "LAST WEEK SOMETIME" FOR THIS PROBLEM AND HAD COVID TEST WHICH WAS NEGATIVE AND WAS PRESCRIBED AN UNKNOWN INHALER, BUT PT STATES SHE COULD NOT AFFORD IT SO SHE DID NOT PICK IT UP. PT HAS NOT ATTEMPTED TO FOLLOW UP WITH THEM SINCE THEN HAS NOT TAKEN ANY OVER THE COUNTER MEDICATIONS FOR HER SYMPTOMS PT STATES SHE HAS HAD COVID -19 VACCINE X 3--WHILE SHE WAS IN [facility], AND SHE HAS BEEN OUT OF [facility] FOR 6 MONTHS PT SMOKES AT LEAST 1/2 PPD OF CIGARETTES, PLUS VAPES NICOTINE SHE ALSO SMOKES MARIJUANA ON A REGULAR BASIS SHE ALSO USES IV METH--ALSO SMOKES IT. CLAIMS SHE HAS NOT USED ANY DRUGS "FOR AT LEAST 10 MONTHS" LMP 03/09/22. NORMAL. NO CONTROL. PCP: [facility] Allergies and Home Medications Allergies Coded Allergies: codeine (Verified Allergy, Mild, 12/23/13) guaifenesin (Verified Allergy, Mild, 12/23/13) hydrocodone (Unverified Allergy, Unknown, 05/15/14) Patient Home Medication List Home Medication List Reviewed: Yes Amitriptyline HCl (Amitriptyline HCl) 10 Mg Tablet, 10 MG PO, (Reported) Entered as Reported by: GEO MOORE on 05/30/18 478 Baloxavir Marboxil (Xofluza) 80 Mg Tablet, 80 MG PO ONCE Prescribed by: FELI RAMOS on 12/06/212141 Benzonatate (Tessalon Perles) 100 Mg Capsule, 200 MG PO TID Prescribed by: LEONIDAS RODRIGUEZ on 03/16/2222 Cephalexin (Cephalexin) 500 Mg Tablet, 500 MG PO BID Prescribed by: CESAR SHEARER on 02/13/18 0618 Cephalexin (Keflex) 500 Mg Capsule, 500 MG PO TID Prescribed by: ADRIANNE ADKINS on 08/01/20 1459 D-Methorphan Hb/Prometh HCl (Promethazine-Dm Syrup) 6.25 Mg-15 Mg/5 Ml Syrup, 5 ML PO Q4H PRN for COUGH Prescribed by: LEONIDAS RODRIGUEZ on 03/16/22 002 Doxycycline Hyclate (Doxycycline Hyclate) 100 Mg Tablet, 100 MG PO BID Prescribed by: AFUA GARCIA on 09/22/21 1105 Escitalopram Oxalate (Lexapro) 5 Mg Tablet, 5 MG PO, (Reported) Entered as Reported by: GEO MOORE on 05/30/181823 Methylprednisolone (Medrol) 4 Mg Tab.ds.pk, 4 MG PO UD Prescribed by: LEONIDAS RODRIGUEZ on 03/16/2222 Nitrofurantoin Macrocrystal (Nitrofurantoin) 100 Mg Capsule, 100 MG PO BID Prescribed by: ANEESH DAVIS on 07/27/21 165 Ondansetron (Zofran Odt) 4 Mg Tab.rapdis, 4 MG SL Q4H PRN for NAUSEA/VOMITING- 1ST LINE Prescribed by: EM HOLLINS on 05/30/18 185 Ondansetron (Ondansetron Odt) 4 Mg Tab.rapdis, 4 MG PO Q6H PRN for NAUSEA/VOMITING Prescribed by: ANEESH DAVIS on 07/27/21 165 Ondansetron (Ondansetron Odt) 4 Mg Tab.rapdis, 4 MG PO Q6H PRN for NAUSEA/VOMITING Prescribed by: FELI RAMOS on 12/06/212141 Sulfamethoxazole/Trimethoprim (Bactrim Ds Tablet) 1 Each Tablet, 1 EACH PO BID Prescribed by: EM HOLLINS on 05/30/181853 Review of Systems Review of Systems Constitutional: no symptoms reported EENTM: no symptoms reported Respiratory: see HPI, cough, short of breath Cardiovascular: no symptoms reported; No chest pain Gastrointestinal: no symptoms reported Genitourinary: no symptoms reported : No LMP: Mar 09, 2022 Musculoskeletal: no symptoms reported Skin: no symptoms reported Psychiatric/Neurological: Anxiety Hematologic/Lymphatic: No Symptoms Reported Immunological/Allergic: no symptoms reported Past Pqglqvx-Pawqkl-Sgikgm Hx Patient Social History Tobacco Use?: Yes Tobacco type used: Cigarettes Smoking Status: Current Everyday Smoker Use of E-Cig and/or Vaping dev: Yes E-Cig or Vaping type used: Nicotine Use of E-Cig and/or Vaping Jason: Current Everyday User Substance use?: Yes Substance type: Amphetamines, Methamphetamine, Marijuana Substance frequency: Daily Alcohol Use?: Yes Alcohol Frequency: Once in a while Immunizations Up To Date Tetanus Booster (TDap): Unknown PED Vaccines UTD: Yes First/Initial COVID19 Vaccinat: MAY Second COVID19 Vaccination Carlos: May COVID19 Vaccination Date: MAY Seasonal Allergies Seasonal Allergies: No Past Medical History Surgery/Hospitalization HX: tonsillectomy Surgeries: Yes Adenoidectomy, Tonsillectomy Respiratory: Yes Asthma Cardiac: No Neurological: Yes Headaches /Migraines, Seizure Disorder Reproductive Disorders: Yes Female Reproductive Disorders: Polycystic Ovarian Dis Sexually Transmitted Disease: No Genitourinary: No Gastrointestinal: No Musculoskeletal: No Endocrine: No HEENT: No Cancer: No Psychosocial: Yes (POLYSUBSTANCE ABUSE) Anxiety, PTSD Integumentary: No Blood Disorders: No Family Medical History No Pertinent Family Hx, Heart Disease, Cancer, Stroke SOCIAL HISTORY: -SMOKES 1/2-1 PPD -VAPES NICOTINE DAILY -OCCASIONAL ETOH USE -DRUGS--EXTENSIVE DRUG USE, INCLUDING + IV METH USE, ALSO SMOKES IT. SMOKES THC ON REGULAR BASIS. Physical Exam Vital Signs - First Documented 03/15/22 03/15/22 22:43 23:17 Temp 36.4 Pulse 121 Resp 27 B/P (MAP) 150/109 (123) O2 Delivery Room Air FiO2 21 Capillary Refill : Less Than 3 Seconds Height: 5'2.00" Weight: 185lbs. 4oz. 83.482224ns; 41.00 BMI Method:Stated General Appearance: WD/WN, obese, other (PT VERY DRAMATIC, HYPERVENTILATING, WITH HARSH FORCED COUGHING AND CLEARING THROAT, CONSTANT MOVEMENTS OF ENTIRE BODY) HEENT: PERRL/EOMI, other (EXTENSIVE DENTAL DECAY WITH NEARLY ALL TEETH DECAYED DOWN TO GUMS) Neck: normal inspection Respiratory: no respiratory distress, no accessory muscle use, other (HYPERVENTILATING, UPPER AIRWAY NOISE WITH COARSE BREATH SOUNDS BILATERALLY. ) Cardiovascular: no edema, no JVD, no murmur, tachycardia (110-120) Gastrointestinal: non tender, soft Extremities: normal inspection, normal capillary refill Neurologic/Psychiatric: no motor/sensory deficits, alert, oriented x 3, other (ANXIOUS, HYPERVENTILATING) Skin: normal color, warm/dry, tattoos/piercings (EXTENSIVE TATTOOS) Progress/Results/Core Measures Suspected Sepsis SIRS Temperature: Pulse: 121 Respiratory Rate: 27 Laboratory Tests 03/15/22 22:49: White Blood Count 15.7H Blood Pressure 150 /109 Mean: 123 Laboratory Tests 03/15/22 22:49: Creatinine 1.01, Platelet Count 518H, Total Bilirubin 1.4H Results/Orders Lab Results Laboratory Tests Test 03/15/22 00:01 03/15/22 22:49 03/15/22 22:53 Range/Units Urine Opiates Screen NEGATIVE NEGATIVE Urine Oxycodone Screen NEGATIVE NEGATIVE Urine Methadone Screen NEGATIVE NEGATIVE Urine Propoxyphene Screen NEGATIVE NEGATIVE Urine Barbiturates Screen NEGATIVE NEGATIVE Ur Tricyclic Antidepressants Screen NEGATIVE NEGATIVE Urine Phencyclidine Screen NEGATIVE NEGATIVE Urine Amphetamines Screen POSITIVE H NEGATIVE Urine Methamphetamines Screen POSITIVE H NEGATIVE Urine Benzodiazepines Screen NEGATIVE NEGATIVE Urine Cocaine Screen NEGATIVE NEGATIVE Urine Cannabinoids Screen NEGATIVE NEGATIVE White Blood Count 15.7 H 4.3-11.0 10^3/uL Red Blood Count 5.06 3.80-5.11 10^6/uL Hemoglobin 14.5 11.5-16.0 g/dL Hematocrit 41 35-52 % Mean Corpuscular Volume 81 80-99 fL Mean Corpuscular Hemoglobin 29 25-34 pg Mean Corpuscular Hemoglobin Concent 35 32-36 g/dL Red Cell Distribution Width 12.6 10.0-14.5 % Platelet Count 518 H 130-400 10^3/uL Mean Platelet Volume 10.9 9.0-12.2 fL Immature Granulocyte % (Auto) 1 % Neutrophils (%) (Auto) 67 42-75 % Lymphocytes (%) (Auto) 21 12-44 % Monocytes (%) (Auto) 11 0-12 % Eosinophils (%) (Auto) 0 0-10 % Basophils (%) (Auto) 0 0-10 % Neutrophils # (Auto) 10.4 H 1.8-7.8 10^3/uL Lymphocytes # (Auto) 3.3 1.0-4.0 10^3/uL Monocytes # (Auto) 1.8 H 0.0-1.0 10^3/uL Eosinophils # (Auto) 0.1 0.0-0.3 10^3/uL Basophils # (Auto) 0.1 0.0-0.1 10^3/uL Immature Granulocyte # (Auto) 0.1 0.0-0.1 10^3/uL Neutrophils % (Manual) 66 % Lymphocytes % (Manual) 18 % Monocytes % (Manual) 11 % Eosinophils % (Manual) 1 % Band Neutrophils 1 % Atypical Lymphocytes 3 % Blood Morphology Comment NORMAL Sodium Level 141 135-145 MMOL/L Potassium Level 3.4 L 3.6-5.0 MMOL/L Chloride Level 111 H 98-107 MMOL/L Carbon Dioxide Level 14 L 21-32 MMOL/L Anion Gap 16 H 5-14 MMOL/L Blood Urea Nitrogen 16 7-18 MG/DL Creatinine 1.01 0.60-1.30 MG/DL Estimat Glomerular Filtration Rate 80 BUN/Creatinine Ratio 16 Glucose Level 127 H 70-105 MG/DL Calcium Level 9.9 8.5-10.1 MG/DL Corrected Calcium 8.5-10.1 MG/DL Magnesium Level 2.1 1.6-2.4 MG/DL Total Bilirubin 1.4 H 0.1-1.0 MG/DL Aspartate Amino Transf (AST/SGOT) 23 5-34 U/L Alanine Aminotransferase (ALT/SGPT) 24 0-55 U/L Alkaline Phosphatase 24 L 40-136 U/L Total Protein 8.4 H 6.4-8.2 GM/DL Albumin 4.6 H 3.2-4.5 GM/DL Serum Test, Qualitative NEGATIVE NEGATIVE Serum Alcohol < 10 <10 MG/DL Influenza Type A (RT-PCR) Not Detected Not Detecte Influenza Type B (RT-PCR) Not Detected Not Detecte SARS-CoV-2 RNA (RT-PCR) Not Detected Not Detecte My Orders Orders - LEONIDAS RODRIGUEZ DO Covid 19 Inhouse Test (03/15/22 22:45) Influenza A And B By Pcr (03/15/22 22:45) Isolation Central Supply Req (03/15/22 22:45) Ed Iv/Invasive Line Start (03/15/22 22:53) Monitor-Rhythm Ecg Trace Only (03/15/22 22:53) Chest 1 View, Ap/Pa Only (03/15/22 22:53) Alcohol (03/15/22 22:53) Cbc With Automated Diff (03/15/22 22:53) Comprehensive Metabolic Panel (03/15/22 22:53) Drug Screen Stat (Urine) (03/15/22 22:53) Hcg,Qualitative Serum (03/15/22 22:53) Magnesium (03/15/22 22:53) Albuterol/Ipra Inhalation Soln (Duoneb I (03/15/22 23:00) Dexamethasone Injection (Decadron Injec (03/15/22 23:00) Rt Request For Service (03/15/22 22:53) Methylprednisolone Sod Succ (Solu-Medrol (03/15/22 22:53) Svn Small Volume Nebulizer (03/15/22 22:53) Manual Differential (03/15/22 22:49) Benzonatate Capsule (Tessalon Perles) (03/16/22 00:15) Fluticasone/Salmeterol 113-14 (Airduo Re (03/16/22 08:00) Benzonatate Capsule (Tessalon Perles) (03/16/22 00:15) Medications Given in ED Current Medications Medications Dose Ordered Sig/Dashawn Route Start Time Stop Time Status Last Admin Dose Admin Albuterol/ Ipratropium 3 ml ONCE ONCE INH 03/15/22 23:00 03/15/22 23:01 DC 03/15/22 23:13 3 ML Vital Signs/I&O 03/15/22 03/15/22 03/15/22 22:43 23:17 23:51 Temp 36.4 Pulse 121 Resp 27 B/P (MAP) 150/109 (123) O2 Delivery Room Air Room Air FiO2 21 21 Capillary Refill : Less Than 3 Seconds Blood Pressure Mean: 123 Progress Note : Progress Note GIVEN NEB TREATMENT WITH SOME IMPROVEMENT IN SYMPTOMS PT STILL WITH HARSH FORCED COUGHING AND CLEARING OF THROAT, BUT OVERALL IMPROVED. GIVEN TESSALON PERLES, AND SOLU-MEDROL, WELL AIR DUO INHALER SPACER GIVEN TO PT WITH SPACER TEACHING 0040--PT IS NOW ANXIOUS TO GO HOME Diagnostic Imaging Comments CXR--NO ACUTE PROCESS, PENDING RADIOLOGIST REVIEW Departure Impression Primary Impression: Asthma exacerbation Additional Impressions: Methamphetamine use ANXIETY WITH HYPERVENTILATION Disposition: 01 HOME, SELF-CARE Condition: Improved Departure-Patient Inst. Decision time for Depature: 00:20 Referrals: [facility] (PCP/Family) Primary Care Physician Patient Instructions: Asthma, Adult (DC), How to Use Your Metered Dose Inhaler (Adults), How to Use a Spacer, Rescue vs Controller Inhalers Add. Discharge Instructions: INCREASE YOUR FLUID INTAKE TYLENOL AND MOTRIN NEEDED FOR PAIN OR FEVER NO SMOKING OR VAPING OF ANY KIND. USE AIR DUO INHALER WITH SPACER--2 PUFFS TWICE A DAY USE YOUR ALBUTEROL INHALER WITH SPACER EVERY 4 HOURS NEEDED FOLLOW UP WITH [facility] IN 1-2 DAYS FOR FURTHER CARE, RETURN TO ER IF WORSE All discharge instructions reviewed with patient and/or family. Voiced understanding. Scripts D-Methorphan Hb/Prometh HCl (Promethazine-Dm Syrup) 6.25 Mg-15 Mg/5 Ml Syrup 5 ML PO Q4H PRN for COUGH, #60 ML Prov: LEONIDAS RODRIGUEZ DO 03/16/22 Benzonatate (TESSALON PERLES) 100 Mg Capsule 200 MG PO TID, #30 CAP Prov: LEONIDAS RODRIGUEZ DO 03/16/22 Methylprednisolone (Medrol) 4 Mg Tab.ds.pk 4 MG PO UD for 6 Days, #21 PKG PER DOSE PACK INSTRUCTIONS Prov: LEONIDAS RODRIGUEZ DO 03/16/22 Work/School Note: Work Release Form Date Seen in the Emergency Department: Mar 15, 2022 LEONIDAS RODRIGUEZ DO Mar 15, 2022 23:53
[2022-03-16] MEDS ORDERED: BENZONATATE 100 MG (TESSALON) CAPSULE PO SCH (00:15)
[2022-03-16] MEDS ORDERED: BENZONATATE 100 MG (TESSALON) CAPSULE PO ONE (00:15)
[2022-03-16] MEDS ORDERED: METH4TAB PO (00:23)
[2022-03-16] MEDS ORDERED: PROM118S5 PO (00:23)
[2022-03-16] MEDS ORDERED: BENZ100C18 PO (00:23)
[2022-03-16 00:41] LABS: AMPHETAMINE SCREEN, URINE POSITIVE (NEGATIVE); BARBITURATE SCREEN URINE NEGATIVE (NEGATIVE); BENZODIAZEPINES SCREEN URINE NEGATIVE (NEGATIVE); CANNABINOID SCREEN, URINE NEGATIVE (NEGATIVE); COCAINE SCREEN URINE NEGATIVE (NEGATIVE); METHADONE STAT NEGATIVE (NEGATIVE); OPIATE SCREEN URINE NEGATIVE (NEGATIVE); OXYCODONE STAT NEGATIVE (NEGATIVE); PROPOXYPHENE STAT NEGATIVE (NEGATIVE); TRICYCLIC ANTIDEPRESSANTS SCRE NEGATIVE (NEGATIVE)
[2022-03-16] MEDS ORDERED: RT--FLUTICASONE/SALMETEROL 113-14 (AIRDUO RespiCLICK) IH SCH (08:00)
--- NOTE | 2022-03-16 08:25 | Diagnostic Imaging Report ---
EXAMINATION: Chest 1 view HISTORY: DYSPNEA COMPARISON: 04/06/15 FINDINGS: Heart size and pulmonary vasculature are normal. The lungs are clear without consolidation, pleural effusion, or pneumothorax. The osseous structures are intact. IMPRESSION: 1. No acute radiographic abnormality in the chest. Dictated by: Dictated on workstation # [id number]
== END 2022-03-16 00:48 | disposition home or self-care (01) ==
LOC: EDUNIT# 22:34 → ER 22:38
DX: J45.901 Unspecified asthma with (acute) exacerbation (principal); F41.8 Other specified anxiety disorders; R06.4 Hyperventilation; F15.10 Other stimulant abuse, uncomplicated; F17.210 Nicotine dependence, cigarettes, uncomplicated; F17.290 Nicotine dependence, other tobacco product, uncomplicated; Z20.822 Contact with and (suspected) exposure to COVID-19
CPT/HCPCS: 71045; 80053; 83735; 84703; 85007; 87636; 94640; G0480; 36415; 80306; 80320; 85027; 93041

== ENCOUNTER 2022-08-31 04:31 | Emergency (ER) | payer SELFPAY ==
[~2022-08-31] VITALS: Ht 157 cm; Wt 96.0 kg
[~2022-08-31 04:31] MED LIST changes: +ALBU8.5H6 IH; +METH4TAB PO; +PROM118S5 PO; -RT-ALBUINH IH
[2022-08-31] MEDS ORDERED: methylPREDNISolone 125 MG (Solu-MEDROL) VIAL IVP ONE (04:45)
[2022-08-31] MEDS ORDERED: diphenhydrAMINE 50 MG/ML INJ (BENADRYL) IVP ONE (04:45)
[2022-08-31] MEDS ORDERED: FAMOTIDINE 20MG/2ML IV (PEPCID) IVP ONE (04:45)
--- NOTE | 2022-08-31 05:41 | ED General ---
General Chief Complaint: Allergic Reaction Stated Complaint: ALLERGIC RXN,SOB Nursing Triage Note: c/o facial swelling/redness, lip swelling after eating strawberries approx. 199908/30/22. reports po benadryl at 2300/0230. denies throat discomfort. Source of Information: Patient Exam Limitations: No Limitations History of Present Illness Date Seen by Provider: Aug 31, 2022 Time Seen by Provider: 04:39 Initial Comments This 22-year-old young lady presents to the emergency room with facial swelling, redness, and itching after eating food containing strawberries yesterday evening. 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 She did not know the food was containing strawberries. She took Benadryl 50 mg about 2300. She noticed that of red face around 0100. She took an additional Benadryl 25 mg at about 0230. She reports shortness of breath but she has no dyspnea, abnormal breath sounds on auscultation, or throat swelling. 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 Allergies and Home Medications Allergies Coded Allergies: codeine (Verified Allergy, Mild, 12/23/13) guaifenesin (Verified Allergy, Mild, 12/23/13) hydrocodone (Unverified Allergy, Unknown, 05/15/14) strawberry (Verified Allergy, Unknown, 08/31/22) Patient Home Medication List Home Medication List Reviewed: Yes Discontinued Medications Amitriptyline HCl (Amitriptyline HCl) 10 Mg Tablet, 10 MG PO, (Reported) Discontinued Reason: No Longer Taking Entered as Reported by: GEO MOORE on 05/30/181823 Last Action: Discontinued Baloxavir Marboxil (Xofluza) 80 Mg Tablet, 80 MG PO ONCE Discontinued Reason: No Longer Taking Prescribed by: FELI RAMOS on 12/06/212141 Last Action: Discontinued Benzonatate (Tessalon Perles) 100 Mg Capsule, 200 MG PO TID Discontinued Reason: No Longer Taking Prescribed by: LEONIDAS RODRIGUEZ on 03/16/22 0023 Last Action: Discontinued Cephalexin (Cephalexin) 500 Mg Tablet, 500 MG PO BID Discontinued Reason: No Longer Taking Prescribed by: CESAR SHEARER on 02/13/18 0618 Last Action: Discontinued Cephalexin (Keflex) 500 Mg Capsule, 500 MG PO TID Discontinued Reason: No Longer Taking Prescribed by: ADRIANNE ADKINS on 08/01/20 1459 Last Action: Discontinued D-Methorphan Hb/Prometh HCl (Promethazine-Dm Syrup) 6.25 Mg-15 Mg/5 Ml Syrup, 5 ML PO Q4H PRN for COUGH Discontinued Reason: No Longer Taking Prescribed by: LEONIDAS RODRIGUEZ on 03/16/2222 Last Action: Discontinued Doxycycline Hyclate (Doxycycline Hyclate) 100 Mg Tablet, 100 MG PO BID Discontinued Reason: No Longer Taking Prescribed by: AFUA GARCIA on 09/22/21 1105 Last Action: Discontinued Escitalopram Oxalate (Lexapro) 5 Mg Tablet, 5 MG PO, (Reported) Discontinued Reason: No Longer Taking Entered as Reported by: GEO MOORE on 05/30/181823 Last Action: Discontinued Methylprednisolone (Medrol) 4 Mg Tab.ds.pk, 4 MG PO UD Discontinued Reason: No Longer Taking Prescribed by: LEONIDAS RODRIGUEZ on 03/16/2222 Last Action: Discontinued Nitrofurantoin Macrocrystal (Nitrofurantoin) 100 Mg Capsule, 100 MG PO BID Discontinued Reason: No Longer Taking Prescribed by: ANEESH DAVIS on 07/27/21 165 Last Action: Discontinued Ondansetron (Zofran Odt) 4 Mg Tab.rapdis, 4 MG SL Q4H PRN for NAUSEA/VOMITING- 1ST LINE Discontinued Reason: No Longer Taking Prescribed by: EM HOLLINS on 05/30/181853 Last Action: Discontinued Ondansetron (Ondansetron Odt) 4 Mg Tab.rapdis, 4 MG PO Q6H PRN for NAUSEA/VOMITING Discontinued Reason: No Longer Taking Prescribed by: ANEESH DAVIS on 07/27/21 165 Last Action: Discontinued Ondansetron (Ondansetron Odt) 4 Mg Tab.rapdis, 4 MG PO Q6H PRN for NAUSEA/VOMITING Discontinued Reason: No Longer Taking Prescribed by: FELI RAMOS on 12/06/212141 Last Action: Discontinued Sulfamethoxazole/Trimethoprim (Bactrim Ds Tablet) 1 Each Tablet, 1 EACH PO BID Discontinued Reason: No Longer Taking Prescribed by: EM HOLLINS on 05/30/181853 Last Action: Discontinued Review of Systems Review of Systems Constitutional: no symptoms reported EENTM: see HPI Respiratory: see HPI Cardiovascular: no symptoms reported Gastrointestinal: no symptoms reported Genitourinary: no symptoms reported Musculoskeletal: no symptoms reported Skin: see HPI Psychiatric/Neurological: No Symptoms Reported Hematologic/Lymphatic: No Symptoms Reported Immunological/Allergic: no symptoms reported Past Vyytuao-Tdvzyd-Cwozoz Hx Patient Social History Tobacco Use?: Yes Substance use?: Yes Substance type: Methamphetamine, Marijuana Alcohol Use?: Yes Alcohol Frequency: Once in a while Pt feels they are or have been: No Immunizations Up To Date Tetanus Booster (TDap): Unknown PED Vaccines UTD: Yes First/Initial COVID19 Vaccinat: x3 Second COVID19 Vaccination Carlos: MAY Third COVID19 Vaccination Date: MAY Seasonal Allergies Seasonal Allergies: No Past Medical History Surgery/Hospitalization HX: t/a, asthma, headaches, seizures, anxiety, ptsd, Surgeries: Yes Adenoidectomy, Tonsillectomy Respiratory: Yes Asthma Cardiac: No Neurological: Yes Headaches /Migraines, Seizure Disorder Reproductive Disorders: Yes Female Reproductive Disorders: Polycystic Ovarian Dis Sexually Transmitted Disease: No Genitourinary: No Gastrointestinal: No Musculoskeletal: No Endocrine: No HEENT: No Cancer: No Psychosocial: Yes (POLYSUBSTANCE ABUSE) Anxiety, PTSD Integumentary: No Blood Disorders: No Family Medical History No Pertinent Family Hx, Heart Disease, Cancer, Stroke SOCIAL HISTORY: -SMOKES 1/2-1 PPD -VAPES NICOTINE DAILY -OCCASIONAL ETOH USE -DRUGS--EXTENSIVE DRUG USE, INCLUDING + IV METH USE, ALSO SMOKES IT. SMOKES THC ON REGULAR BASIS. Physical Exam Vital Signs Vital Signs - First Documented 08/31/22 04:37 Temp 36.2 Pulse 113 Resp 20 B/P (MAP) 129/101 (110) Pulse Ox 99 O2 Delivery Room Air Capillary Refill : Less Than 3 Seconds Height, Weight, BMI Height: 5'2.00" Weight: 185lbs. 4oz. [id number]; 38.00 BMI Method:Stated General Appearance: No Apparent Distress, WD/WN HEENT: PERRL/EOMI, Other (Mild facial erythema. Mild lip edema. Oropharynx unremarkable.) Neck: Normal Inspection Respiratory: Lungs Clear, Normal Breath Sounds, No Accessory Muscle Use Cardiovascular: Regular Rate, Rhythm, No Edema, No Murmur Extremity: Normal Inspection, No Pedal Edema Neurologic/Psychiatric: Alert, Oriented x3, No Motor/Sensory Deficits, Normal Mood/Affect, bowl attendant II-XII Norm as Tested, Other (Subtle involuntary twitching) Skin: Warm/Dry, Erythema (Facial) Progress/Results/Core Measures Suspected Sepsis SIRS Temperature: Pulse: 113 Respiratory Rate: 20 Blood Pressure 129 /101 Mean: 110 Results/Orders My Orders Orders - ADRIANNE SENIOR MD Methylprednisolone Sod Succ (Solu-Medrol (08/31/22 04:45) Diphenhydramine Injection (Benadryl Inje (08/31/22 04:45) Famotidine Injection (Pepcid Injection) (08/31/22 04:45) Ed Iv/Invasive Line Start (08/31/22 04:44) Medications Given in ED Current Medications Medications Dose Ordered Sig/Dashawn Route Start Time Stop Time Status Last Admin Dose Admin Diphenhydramine HCl 25 mg ONCE ONCE IVP 08/31/22 04:45 08/31/22 04:47 DC 08/31/22 04:52 25 MG Famotidine 20 mg ONCE ONCE IVP 08/31/22 04:45 08/31/22 04:47 DC 08/31/22 04:52 20 MG Methylprednisolone Sodium Succinate 125 mg ONCE ONCE IVP 08/31/22 04:45 08/31/22 04:47 DC 08/31/22 04:52 125 MG Vital Signs/I&O 08/31/22 04:37 Temp 36.2 Pulse 113 Resp 20 B/P (MAP) 129/101 (110) Pulse Ox 99 O2 Delivery Room Air Capillary Refill : Less Than 3 Seconds Blood Pressure Mean: 110 Progress Note : Progress Note Patient was treated with Solu-Medrol, Benadryl, and Pepcid. She reported improvement. Departure Impression Primary Impression: Lip swelling Additional Impression: Facial twitching Disposition: 01 HOME, SELF-CARE Condition: Improved Departure-Patient Inst. Decision time for Depature: 05:40 Referrals: [facility] [place] Primary Care Physician Patient Instructions: Food Allergy Add. Discharge Instructions: It is possible that your lip swelling and facial irritation is due to food allergy or some other exposure. You may take Benadryl (diphenhydramine) up to 50 mg every 4 hours as needed for further treatment of itching. Return to the ER if you have worsening symptoms despite using Benadryl and avoiding further exposure. All discharge instructions reviewed with patient and/or family. Voiced understanding. Copy Copies To 1: [facility]/ADRIANNE LEYVA MD Aug 31, 2022 05:41
[2022-08-31 05:43] VITALS: BP 104/92
== END 2022-08-31 05:43 | disposition home or self-care (01) ==
LOC: EDUNIT# 04:31 → ER 04:35
DX: R22.0 Localized swelling, mass and lump, head (principal); R25.3 Fasciculation; F17.210 Nicotine dependence, cigarettes, uncomplicated; F17.290 Nicotine dependence, other tobacco product, uncomplicated
CPT/HCPCS: 99281

== ENCOUNTER 2023-01-25 06:43 | Emergency (ER) | payer SELFPAY ==
[~2023-01-25] VITALS: Ht 158.5 cm; Wt 86.1 kg
[2023-01-25] MEDS ORDERED: ONDANSETRON 4 MG (ZOFRAN) ORAL DISSOLVE TAB PO STA (06:57)
--- NOTE | 2023-01-25 06:57 | ED Integumentary General ---
General Chief Complaint: Laceration Stated Complaint: LEFT LEG LAC Nursing Triage Note: PATIENT STATES AROUND 0300 SHE TRIPPED AND FELL ON HER LAMP. STATES GLASS IN LEFT LOWER EXT LACERATION. Source: patient Exam Limitations: no limitations History of Present Illness Date Seen by Provider: January 25, 2023 Time Seen by Provider: 06:46 Initial Comments Patient is a 22-year-old female who presents to the emergency room with a chief complaint of extensive lacerations to her left anterior lower leg. Patient states this occurred about 3 AM. She tripped and fell over a lamp (Scentsy warmer) landing on the light bulb. She states she has been trying to keep the wound clean all morning. Presents for pain as well as glass shards in the lacerations. Patient states her last tetanus shot was 1 year ago after getting a nail in her right leg. She states she takes no daily medications. She states she cannot really move her toes. Significant pain in the leg currently. No active bleeding noted on arrival. Timing/Duration: this morning (early at about 3am) Associated Symptoms: paresthesia (Left foot) Allergies and Home Medications Allergies Coded Allergies: codeine (Verified Allergy, Mild, 12/23/13) guaifenesin (Verified Allergy, Mild, 12/23/13) hydrocodone (Unverified Allergy, Unknown, 05/15/14) strawberry (Verified Allergy, Unknown, 08/31/22) Patient Home Medication List Home Medication List Reviewed: Yes Cephalexin (Cephalexin) 500 Mg Tablet, 500 MG PO TID Prescribed by: ADRIEN HOPE on 01/25/23 1009 Tramadol HCl (Tramadol HCl) 50 Mg Tablet, 50 MG PO Q6H PRN for PAIN Prescribed by: ADRIEN HOPE on 01/25/23 1010 Review of Systems Review of Systems Constitutional: see HPI Respiratory: no symptoms reported Cardiovascular: no symptoms reported Gastrointestinal: nausea Genitourinary: no symptoms reported Musculoskeletal: other (Leg pain) Skin: other (Laceration) All Other Systems Reviewed Negative Unless Noted: Yes Past Ckgolhm-Pqfyqc-Wigtif Hx Patient Social History Tobacco Use?: Yes Tobacco type used: Cigarettes Smoking Status: Current Everyday Smoker Use of E-Cig and/or Vaping dev: No Substance use?: No Alcohol Use?: No Pt feels they are or have been: No Immunizations Up To Date Tetanus Booster (TDap): Unknown PED Vaccines UTD: Yes First/Initial COVID19 Vaccinat: 2020 Second COVID19 Vaccination Carlos: 2020 Third COVID19 Vaccination Date: MAY Seasonal Allergies Seasonal Allergies: No Past Medical History Surgery/Hospitalization HX: t/a, asthma, headaches, seizures, anxiety, ptsd, Surgeries: Yes Adenoidectomy, Tonsillectomy Respiratory: Yes Asthma Cardiac: No Neurological: Yes Headaches /Migraines, Seizure Disorder Reproductive Disorders: Yes Female Reproductive Disorders: Polycystic Ovarian Dis Sexually Transmitted Disease: No Genitourinary: No Gastrointestinal: No Musculoskeletal: No Endocrine: No HEENT: No Cancer: No Psychosocial: Yes (POLYSUBSTANCE ABUSE) Anxiety, PTSD Integumentary: No Blood Disorders: No Family Medical History No Pertinent Family Hx, Heart Disease, Cancer, Stroke SOCIAL HISTORY: -SMOKES 1/2-1 PPD -VAPES NICOTINE DAILY -OCCASIONAL ETOH USE -DRUGS--EXTENSIVE DRUG USE, INCLUDING + IV METH USE, ALSO SMOKES IT. SMOKES THC ON REGULAR BASIS. Physical Exam Vital Signs Vital Signs - First Documented 01/25/23 06:44 Temp 36.7 Pulse 116 Resp 20 B/P (MAP) 131/81 (98) Pulse Ox 97 O2 Delivery Room Air Capillary Refill : Less Than 3 Seconds General Appearance: WD/WN, no apparent distress HEENT: PERRL/EOMI Cardiovascular: regular rate, rhythm, tachycardia (116) Respiratory: lungs clear, normal breath sounds, no respiratory distress, no accessory muscle use Extremities: normal range of motion, other (Laceration, multiple left anterior lower leg, no active bleeding. Significant amounts of dried blood down the leg) Neurologic/Psychiatric: alert, oriented x 3, other (Anxious) Skin: normal color, warm/dry, other (Laceration) Procedures/Interventions Wound Location: Lower Extremities Other Wound Location anterior left lower leg Wound Length (cm): 29 Wound's Depth, Shape: irregular, flap, stellate, contused tissue, sub Q Wound Explored: foreign body removed Irrigated w/ Saline (ccs): 2000 Betadine Prep?: No Anesthesia: Lidocaine w/ Epi Volume Anesthetic (ccs): 20 Wound Debrided: moderate Suture: Ethlion, Vicryl Suture Size: 4-0 Number of Sutures: 39 Layer Closure?: 2 Number Deep Layer Sutures: 6 Sterile Dressing Applied?: Yes Progress/Results/Core Measures Results/Orders My Orders Orders - ADRIEN HOPE MD Lidocaine/Epi 2% 1:100,000 (Xylocaine/Ep (01/25/23 07:00) Ondansetron Oral Dissolve Tab (Zofran (01/25/23 06:57) Lidocaine/Epi Mpf 2% 1:200,000 (Xylocain (01/25/23 07:03) Tramadol Tablet (Ultram Tablet) (01/25/23 07:30) Lidocaine/Epi Mpf 2% 1:200,000 (Xylocain (01/25/23 08:46) Medications Given in ED Vital Signs/I&O 01/25/23 01/25/23 01/25/23 06:44 08:38 10:14 Temp 36.7 Pulse 116 83 86 Resp 20 18 18 B/P (MAP) 131/81 (98) 116/86 (96) 125/85 Pulse Ox 97 99 97 O2 Delivery Room Air Room Air Room Air Blood Pressure Mean: 98 Progress Progress Note : Progress Note Patient seen and evaluated by me. Evaluation today includes physical exam. Pertinent physical exam findings anxious appearing well-developed well-nourished female. Extensive lacerations to the left anterior lower leg. No active bleeding at the time of presentation. Wounds have obvious glass protruding. Patient is distal neurovascularly intact to the left lower extremity. Tetanus is up-to-date. No other complaints of injury. Patient was treated with pain medication orally. She had local anesthesia 2% lidocaine with epi 20 cc infiltrated throughout all of the extensive lacerations to the left anterior medina. In total with all the irregularity of the lacerations the length was 29 cm. Multilayer closure. 4-[address] several horizontal mattress sutures to facilitate apposition of underlying tissues. 4-0 Ethilon used to systematically close the skin. Both horizontal mattress and superficial interrupted sutures were utilized. Extensive debridement of a avulsed tissue, flap-like tissue, irregularity. Multiple large pieces of glass were removed from the wounds. It was copiously irrigated with 2 L of normal saline. Upon closure wound margins approximated very well. Advised the patient the sutures will need to be in for 2 weeks. Patient was placed in a knee immobilizer to lessen the stress on the sutures. She was placed on antibiotics due to the extensive contamination of the wounds and the environment in which she states she fell. She was given tramadol for pain. Return precautions provided in both verbal and written format. Patient verbalized understanding. All questions are sought and answered. Patient was improved at discharge. Departure Impression Primary Impression: Laceration with foreign body Disposition: 01 HOME, SELF-CARE Condition: Stable Departure-Patient Inst. Decision time for Depature: 10:08 Referrals: [facility] (PCP/Family) Primary Care Physician Patient Instructions: Laceration Repair With Stitches ED Add. Discharge Instructions: Keep the wounds clean dry and covered for the first couple of days. Wash the wounds gently with a mild soap and water twice a day. You can apply triple antibiotic ointment over the stitches for the first couple of days twice daily. The sutures will need to come out in 2 weeks. Return to the emergency room for this, the nurses will remove them in triage. If the wounds become red, or draining pus, the leg becomes swollen or you run fever please return to the emergency room for reevaluation. Scripts Tramadol HCl (Tramadol HCl) 50 Mg Tablet 50 MG PO Q6H PRN for PAIN, #8 TAB 0 Refills Prov: ADRIEN HOPE MD 01/25/23 Cephalexin (Cephalexin) 500 Mg Tablet 500 MG PO TID, #15 TAB Prov: ADRIEN HOPE MD 01/25/23 Copy Copies To 1: KESHAWN BURCH KATHRYN M MD January 25, 2023 06:57
[2023-01-25] MEDS ORDERED: LIDOCAINE/EPI 2% 1:100,00 (XYLOCAINE) 20 ML VIAL INJ ONE (07:00)
[2023-01-25] MEDS ORDERED: LIDOCAINE/EPI 2% 1:200,00 (XYLOCAINE) 20 ML VIAL ONE ×2 (07:03→08:46)
[2023-01-25] MEDS ORDERED: TRM50T PO (10:09)
[2023-01-25] MEDS ORDERED: CEPH500T PO (10:09)
[2023-01-25 10:14] VITALS: BP 125/85
== END 2023-01-25 10:14 | disposition home or self-care (01) ==
LOC: EDUNIT# 06:43 → ER 06:45
DX: S81.822A Laceration with foreign body, left lower leg, initial encounter (principal); F17.210 Nicotine dependence, cigarettes, uncomplicated; F17.290 Nicotine dependence, other tobacco product, uncomplicated; Z88.6 Allergy status to analgesic agent; W01.0XXA Fall on same level from slipping, tripping and stumbling without subsequent striking against object, initial encounter; W25.XXXA Contact with sharp glass, initial encounter
CPT/HCPCS: 12032; 99284; A6223